=== PATIENT | male | born 1985 | race Caucasian/White ===

== ENCOUNTER 2018-01-02 00:38 | Emergency (ER) | payer MEDICARE ==
[~2018-01-02] VITALS: Ht 175.3 cm; Wt 77.1 kg
[~2018-01-02 00:38] MED LIST: ALBU3IS INH; ALBU4 PO; ALBU90OI INH; Cipro500 MG PO; Flomax0.4 MG PO; Percocet 5-3251 EACH PO
[2018-01-02 00:55] LABS: BASOPHILS ABSOLUTE AUTO 0.07 K/mm3 (0.00-0.23); BASOPHILS PERCENT AUTO 1 % (0-2); EOSINOPHILS ABSOLUTE AUTO 0.52 K/mm3 (0.00-0.68); EOSINOPHILS PERCENT AUTO 6 % (0-6); Hematocrit 45.3 % (37.0-53.0); Hemoglobin 15.2 g/dL (13.5-17.5); IMMATURE GRAN ABSOLUTE AUTO 0.03 K/mm3 (0.00-0.10); IMMATURE GRAN PERCENT AUTO 0 % (0-1); LYMPHOCYTES ABSOLUTE AUTO 3.39 K/mm3 (0.84-5.20); LYMPHOCYTES PERCENT AUTO 37 % (21-46); MONOCYTES ABSOLUTE AUTO 0.78 K/mm3 (0.16-1.47); MONOCYTES PERCENT AUTO 9 % (4-13); Mean Corpuscular HGB 30.3 pg (26.0-34.0); Mean Corpuscular HGB Conc 33.6 g/dL (31.5-36.5); Mean Corpuscular Volume 90 fL (80-100); Mean Platelet Volume 9.3 fL (9.1-12.4); NEUTROPHILS ABSOLUTE AUTO 4.35 K/mm3 (1.96-9.15); NEUTROPHILS PERCENT AUTO 48 % (41-73); Platelet Count 382 K/mm3 (150-400); RDW Coefficient Variation 12.6 % (11.7-14.2); RDW Standard Deviation 41.7 fL (35.1-46.3); Red Blood Cell Count 5.02 M/mm3 (4.30-5.90); White Blood Cell Count 9.14 K/mm3 (4.00-11.30)
[2018-01-02 00:55] LABS: PO2 Arterial 62.9 mmHg (80-100); pH Blood Arterial 7.37 (7.35-7.45)
[2018-01-02 01:08] LABS: International Normalized Ratio 1.02; Prothrombin Time Results 10.6 Sec (9.7-11.5)
[2018-01-02 01:19] LABS: Alanine Aminotransfer (ALT/SGP 43 U/L (12-78); Albumin/Globulin Ratio 1.1 (0.8-1.8); Alk Phos 63 U/L (50-136); Anion Gap 9 mmol/L (6-16); Aspartate Aminotrans (AST/SGOT 27 U/L (12-37); Bilirubin, Total 0.3 mg/dL (0.1-1.0); Blood Urea Nitrogen 12 mg/dL (8-24); Bun/Creatinine Ratio 10.3 (12.0-20.0); CO2, Blood 26 mmol/L (21-32); Calcium, Blood 8.3 mg/dL (8.5-10.1); Chloride, Blood 103 mmol/L (98-108); Creatinine, Blood 1.16 mg/dL (0.60-1.20); Globulin, Blood 3.7 g/dL (2.2-4.0); Glomerular Filtration Rate >60 (60-); Glucose, Blood 94 mg/dL (70-99); Potassium, Blood 3.7 mmol/L (3.5-5.5); Sodium, Blood 138 mmol/L (136-145); Total Protein, Blood 7.7 g/dL (6.4-8.2)
[2018-01-02 01:20] LABS: Ethanol (Alcohol), Blood, Med 287 mg/dL
[2018-02-17] MEDS ORDERED: GABA300 PO (03:42)
[2018-03-25] MEDS ORDERED: ALBU90OI INH (16:38)
== END 2018-01-02 01:50 | disposition short-term general hospital (02) ==
LOC: ER 00:38
PROVIDERS: Emergency Medicine
DX: S32.442A Displaced fracture of posterior column [ilioischial] of left acetabulum, initial encounter for closed fracture (principal); S32.432A Displaced fracture of anterior column [iliopubic] of left acetabulum, initial encounter for closed fracture; S73.015A Posterior dislocation of left hip, initial encounter; J45.909 Unspecified asthma, uncomplicated; F17.200 Nicotine dependence, unspecified, uncomplicated; V47.5XXA Car driver injured in collision with fixed or stationary object in traffic accident, initial encounter
CPT/HCPCS: 36430; 36600; 51702; 70450; 71045; 71260; 72125; 72170; 74177; 80053; 82803; 83690; 85025; 85610; 85730; 86850; 86900; 86901; 86920; 90714; 96365; 96375; 99291; C1771; G0390; G0480; J1170; J2405; J3010; J7030; J7040; P9016; Q9967

== ENCOUNTER 2018-02-17 03:03 | Emergency (ER) | payer MEDICARE ==
[~2018-02-17] VITALS: Ht 188 cm; Wt 95.2 kg
[2018-02-17] MEDS ORDERED: ALBU3IS INH (03:41)
[2018-02-17] MEDS ORDERED: OXYC5 (03:42)
[2018-02-17] MEDS ORDERED: GABA300 (03:42)
[2018-02-17] MEDS ORDERED: CLARITIN10 MG PO (04:21)
[2018-02-17] MEDS ORDERED: OXYM.05NI (04:21)
[2018-02-17] MEDS ORDERED: Prednisone20 MG PO (04:21)
== END 2018-02-17 04:46 | disposition home or self-care (01) ==
LOC: ER 03:03
DX: J45.901 Unspecified asthma with (acute) exacerbation (principal); J44.9 Chronic obstructive pulmonary disease, unspecified; Z88.6 Allergy status to analgesic agent; Z79.899 Other long term (current) drug therapy; Z79.51 Long term (current) use of inhaled steroids; Z87.891 Personal history of nicotine dependence
CPT/HCPCS: 94640; 96365; 99283; J3475

== ENCOUNTER 2018-02-25 09:26 | Inpatient (IN) | payer MEDICARE ==
[~2018-02-25] VITALS: Ht 172.7 cm; Wt 94.0 kg
[~2018-02-25 09:26] MED LIST changes: +CLARITIN10 MG PO; +GABA300 PO; +OXYC5; +OXYM.05NI; +Prednisone20 MG PO
[2018-02-25 11:46] LABS: BASOPHILS ABSOLUTE AUTO 0.11 K/mm3 (0.00-0.23); BASOPHILS PERCENT AUTO 1 % (0-2); EOSINOPHILS ABSOLUTE AUTO 0.98 K/mm3 (0.00-0.68); EOSINOPHILS PERCENT AUTO 11 % (0-6); Hematocrit 44.7 % (37.0-53.0); Hemoglobin 14.7 g/dL (13.5-17.5); IMMATURE GRAN ABSOLUTE AUTO 0.04 K/mm3 (0.00-0.10); IMMATURE GRAN PERCENT AUTO 0 % (0-1); LYMPHOCYTES ABSOLUTE AUTO 1.62 K/mm3 (0.84-5.20); LYMPHOCYTES PERCENT AUTO 18 % (21-46); MONOCYTES ABSOLUTE AUTO 0.55 K/mm3 (0.16-1.47); MONOCYTES PERCENT AUTO 6 % (4-13); Mean Corpuscular HGB 29.5 pg (26.0-34.0); Mean Corpuscular HGB Conc 32.9 g/dL (31.5-36.5); Mean Corpuscular Volume 90 fL (80-100); Mean Platelet Volume 9.7 fL (9.1-12.4); NEUTROPHILS ABSOLUTE AUTO 5.59 K/mm3 (1.96-9.15); NEUTROPHILS PERCENT AUTO 63 % (41-73); Platelet Count 343 K/mm3 (150-400); RDW Coefficient Variation 13.3 % (11.7-14.2); RDW Standard Deviation 43.8 fL (35.1-46.3); Red Blood Cell Count 4.98 M/mm3 (4.30-5.90); White Blood Cell Count 8.89 K/mm3 (4.00-11.30)
[2018-02-25 12:06] LABS: Alanine Aminotransfer (ALT/SGP 31 U/L (12-78); Albumin, Blood 3.6 g/dL (3.4-5.0); Albumin/Globulin Ratio 1.1 (0.8-1.8); Alk Phos 62 U/L (50-136); Anion Gap 5 mmol/L (6-16); Aspartate Aminotrans (AST/SGOT 16 U/L (12-37); Bilirubin, Total 0.3 mg/dL (0.1-1.0); Blood Urea Nitrogen 17 mg/dL (8-24); Bun/Creatinine Ratio 18.2 (12.0-20.0); CO2, Blood 25 mmol/L (21-32); Calcium, Blood 8.5 mg/dL (8.5-10.1); Chloride, Blood 113 mmol/L (98-108); Creatinine, Blood 0.93 mg/dL (0.60-1.20); Globulin, Blood 3.2 g/dL (2.2-4.0); Glomerular Filtration Rate >60 (60-); Glucose, Blood 95 mg/dL (70-99); Potassium, Blood 3.6 mmol/L (3.5-5.5); Sodium, Blood 143 mmol/L (136-145); Total Protein, Blood 6.8 g/dL (6.4-8.2)
[2018-02-25 12:25] LABS: PCO2 Arterial 33.8 mmHg (35-45); pH Blood Arterial 7.45 (7.35-7.45)
[2018-02-25 12:26] LABS: PO2 Arterial 49.2 mmHg (80-100)
[2018-02-26 04:32] LABS: BASOPHILS ABSOLUTE AUTO 0.02 K/mm3 (0.00-0.23); BASOPHILS PERCENT AUTO 0 % (0-2); EOSINOPHILS PERCENT AUTO 0 % (0-6); Hematocrit 43.4 % (37.0-53.0); Hemoglobin 14.4 g/dL (13.5-17.5); IMMATURE GRAN ABSOLUTE AUTO 0.09 K/mm3 (0.00-0.10); IMMATURE GRAN PERCENT AUTO 1 % (0-1); LYMPHOCYTES ABSOLUTE AUTO 0.69 K/mm3 (0.84-5.20); LYMPHOCYTES PERCENT AUTO 4 % (21-46); MONOCYTES ABSOLUTE AUTO 0.41 K/mm3 (0.16-1.47); MONOCYTES PERCENT AUTO 3 % (4-13); Mean Corpuscular HGB 29.3 pg (26.0-34.0); Mean Corpuscular HGB Conc 33.2 g/dL (31.5-36.5); Mean Corpuscular Volume 88 fL (80-100); Mean Platelet Volume 9.6 fL (9.1-12.4); NEUTROPHILS ABSOLUTE AUTO 15.42 K/mm3 (1.96-9.15); NEUTROPHILS PERCENT AUTO 93 % (41-73); Platelet Count 379 K/mm3 (150-400); Red Blood Cell Count 4.92 M/mm3 (4.30-5.90); White Blood Cell Count 16.63 K/mm3 (4.00-11.30)
[2018-02-26 04:54] LABS: Alanine Aminotransfer (ALT/SGP 31 U/L (12-78); Albumin, Blood 3.6 g/dL (3.4-5.0); Alk Phos 65 U/L (50-136); Anion Gap 6 mmol/L (6-16); Aspartate Aminotrans (AST/SGOT 9 U/L (12-37); Bilirubin, Total 0.4 mg/dL (0.1-1.0); Blood Urea Nitrogen 17 mg/dL (8-24); CO2, Blood 24 mmol/L (21-32); Chloride, Blood 109 mmol/L (98-108); Creatinine, Blood 0.89 mg/dL (0.60-1.20); Globulin, Blood 3.5 g/dL (2.2-4.0); Glomerular Filtration Rate >60 (60-); Glucose, Blood 147 mg/dL (70-99); Potassium, Blood 4.4 mmol/L (3.5-5.5); Sodium, Blood 139 mmol/L (136-145); Total Protein, Blood 7.1 g/dL (6.4-8.2)
[2018-02-26] MEDS ORDERED: BREO ELLIPTA 11 EACH INH (12:28)
[2018-02-26] MEDS ORDERED: DOCU100 PO (12:29)
[2018-02-27] MEDS ORDERED: OXYM.05NI (10:27)
[2018-02-27] MEDS ORDERED: CEPH500 PO (10:28)
[2018-02-27] MEDS ORDERED: Omeprazole20 M1 PO (10:28)
[2018-02-27] MEDS ORDERED: MONT10T PO (10:28)
[2018-02-27] MEDS ORDERED: PRED10 PO (10:30)
== END 2018-02-27 12:25 | disposition home or self-care (01) | DRG 189 ==
LOC: ER 09:26 → ICUE 12:15 → PCU 12:15 → ICUE 12:45 → MEDS 02-26 20:39 → ENPENDDIS 02-27 10:43 → MEDS 02-27 12:25
PROVIDERS: Emergency Medicine; Internal Medicine
DX: J96.01 Acute respiratory failure with hypoxia (principal); J45.901 Unspecified asthma with (acute) exacerbation; J44.0 Chronic obstructive pulmonary disease with (acute) lower respiratory infection; G62.9 Polyneuropathy, unspecified; J20.9 Acute bronchitis, unspecified; K21.9 Gastro-esophageal reflux disease without esophagitis
CPT/HCPCS: 36415; 36600; 71046; 80053; 82803; 85025; 94640; 94644; 94760; 94761; 94762; 96365; 96366; 96375; 99285; J0696; J1650; J2930; J3475; J7030

== ENCOUNTER 2018-03-25 | Emergency (ER) | END 2018-03-25 16:44 | disposition home or self-care (01) ==

== ENCOUNTER 2018-12-05 11:26 | Emergency (ER) | payer MEDICARE ==
[~2018-12-05] VITALS: Ht 188 cm; Wt 86.2 kg
[~2018-12-05 11:26] MED LIST changes: +BREO ELLIPTA 11 EACH INH; +CEPH500 PO; +DOCU100 PO; +MONT10T PO; +Omeprazole20 M1 PO; +PRED10 PO
[2018-12-05] MEDS ORDERED: Prednisone20 MG PO (12:46)
[2018-12-05] MEDS ORDERED: ALBU3IS INH ×2 (12:46→13:21)
[2018-12-06] MEDS ORDERED: ALBU3IS INH (14:54)
== END 2018-12-05 12:51 | disposition home or self-care (01) ==
LOC: ER 11:26
DX: J40 Bronchitis, not specified as acute or chronic (principal); F17.200 Nicotine dependence, unspecified, uncomplicated; Z88.6 Allergy status to analgesic agent; Z79.899 Other long term (current) drug therapy; Z79.51 Long term (current) use of inhaled steroids
CPT/HCPCS: 71046; 94640; 99283-25

== ENCOUNTER 2019-01-10 11:06 | Emergency (ER) | payer MEDICARE ==
[~2019-01-10] VITALS: Ht 188 cm; Wt 86.2 kg
[2019-01-10 11:46] LABS: BASOPHILS ABSOLUTE AUTO 0.13 K/mm3 (0.00-0.23); BASOPHILS PERCENT AUTO 1 % (0-2); EOSINOPHILS ABSOLUTE AUTO 0.56 K/mm3 (0.00-0.68); EOSINOPHILS PERCENT AUTO 4 % (0-6); Hematocrit 45.4 % (37.0-53.0); Hemoglobin 15.4 g/dL (13.5-17.5); IMMATURE GRAN ABSOLUTE AUTO 0.13 K/mm3 (0.00-0.10); IMMATURE GRAN PERCENT AUTO 1 % (0-1); LYMPHOCYTES ABSOLUTE AUTO 1.06 K/mm3 (0.84-5.20); LYMPHOCYTES PERCENT AUTO 8 % (21-46); MONOCYTES ABSOLUTE AUTO 1.97 K/mm3 (0.16-1.47); MONOCYTES PERCENT AUTO 15 % (4-13); Mean Corpuscular HGB 31.5 pg (26.0-34.0); Mean Corpuscular HGB Conc 33.9 g/dL (31.5-36.5); Mean Corpuscular Volume 93 fL (80-100); Mean Platelet Volume 9.8 fL (9.1-12.4); NEUTROPHILS ABSOLUTE AUTO 9.41 K/mm3 (1.96-9.15); NEUTROPHILS PERCENT AUTO 71 % (41-73); Platelet Count 357 K/mm3 (150-400); RDW Coefficient Variation 13.3 % (11.7-14.2); RDW Standard Deviation 45.5 fL (35.1-46.3); Red Blood Cell Count 4.89 M/mm3 (4.30-5.90); White Blood Cell Count 13.26 K/mm3 (4.00-11.30)
[2019-01-10 12:04] LABS: Alanine Aminotransfer (ALT/SGP 147 U/L (12-78); Albumin, Blood 3.3 g/dL (3.4-5.0); Albumin/Globulin Ratio 0.7 (0.8-1.8); Alk Phos 68 U/L (50-136); Anion Gap 8 mmol/L (6-16); Aspartate Aminotrans (AST/SGOT 39 U/L (12-37); Bilirubin, Total 0.9 mg/dL (0.1-1.0); Blood Urea Nitrogen 10 mg/dL (8-24); Bun/Creatinine Ratio 10.9 (12.0-20.0); CO2, Blood 25 mmol/L (21-32); Calcium, Blood 8.9 mg/dL (8.5-10.1); Chloride, Blood 105 mmol/L (98-108); Creatinine, Blood 0.92 mg/dL (0.60-1.20); Globulin, Blood 4.5 g/dL (2.2-4.0); Glomerular Filtration Rate >60 (60-); Glucose, Blood 101 mg/dL (70-99); Potassium, Blood 3.9 mmol/L (3.5-5.5); Sodium, Blood 138 mmol/L (136-145); Total Protein, Blood 7.8 g/dL (6.4-8.2)
[2019-01-10] MEDS ORDERED: FLUT1DIS2 INH (12:38)
[2019-01-10] MEDS ORDERED: CEPH500 PO (13:26)
[2019-01-10] MEDS ORDERED: Zithromax250 MG PO (13:26)
[2019-01-10] MEDS ORDERED: ALBU2.5V5 NEB (13:26)
[2019-01-10] MEDS ORDERED: METPRE4DP PO (13:26)
== END 2019-01-10 16:01 | disposition home or self-care (01) ==
LOC: ER 11:06
PROVIDERS: Physician Assistant
DX: J44.0 Chronic obstructive pulmonary disease with (acute) lower respiratory infection (principal); J18.9 Pneumonia, unspecified organism; J98.01 Acute bronchospasm; E86.0 Dehydration; Z88.6 Allergy status to analgesic agent; Z79.899 Other long term (current) drug therapy; F17.200 Nicotine dependence, unspecified, uncomplicated
CPT/HCPCS: 36415; 71046; 80053; 85025; 94640; 96365; 96367; 96375; 99285-25; J0456; J0696; J2930; J7030; J7050

== ENCOUNTER 2019-07-03 08:39 | Emergency (ER) | payer MEDICARE ==
[~2019-07-03] VITALS: Ht 188 cm; Wt 90.7 kg
[~2019-07-03 08:39] MED LIST changes: +ALBU2.5V5 NEB; +FLUT1DIS2 INH; +METPRE4DP PO; +Zithromax250 MG PO
== END 2019-07-03 10:51 | disposition home or self-care (01) ==
LOC: ER 08:39
DX: J45.901 Unspecified asthma with (acute) exacerbation (principal); Z87.891 Personal history of nicotine dependence; Z88.8 Allergy status to other drugs, medicaments and biological substances; Z79.899 Other long term (current) drug therapy; Z79.51 Long term (current) use of inhaled steroids
CPT/HCPCS: 94640; 94644; 99284-25; J1100

== ENCOUNTER 2019-07-16 19:12 | Emergency (ER) | payer MEDICARE ==
[~2019-07-16] VITALS: Ht 188 cm; Wt 93.0 kg
[2019-07-16] MEDS ORDERED: ALBU90OI INH (20:07)
[2019-07-16] MEDS ORDERED: ALBU2.5V5 INH (20:07)
== END 2019-07-16 20:32 | disposition home or self-care (01) ==
LOC: ER 19:12
DX: J45.901 Unspecified asthma with (acute) exacerbation (principal); J44.9 Chronic obstructive pulmonary disease, unspecified; Z88.6 Allergy status to analgesic agent; Z87.891 Personal history of nicotine dependence; Z79.51 Long term (current) use of inhaled steroids
CPT/HCPCS: 94640; 99283-25; J1100

== ENCOUNTER 2019-07-27 07:06 | Emergency (ER) | payer MEDICARE ==
[~2019-07-27] VITALS: Ht 188 cm; Wt 99.8 kg
[~2019-07-27 07:06] MED LIST changes: +ALBU2.5V5 INH
[2019-07-27] MEDS ORDERED: ALBU90OI INH (10:12)
[2019-07-27] MEDS ORDERED: Prednisone20 MG PO (10:12)
== END 2019-07-27 10:37 | disposition home or self-care (01) ==
LOC: ER 07:06
DX: J45.901 Unspecified asthma with (acute) exacerbation (principal); Z87.891 Personal history of nicotine dependence; Z88.6 Allergy status to analgesic agent; Z79.899 Other long term (current) drug therapy
CPT/HCPCS: 71045; 94640; 96365; 96375; 99285-25; J1100; J3475; J7030

== ENCOUNTER 2019-07-28 07:14 | Emergency (ER) | payer MEDICARE ==
[~2019-07-28] VITALS: Ht 188 cm; Wt 93.0 kg
== END 2019-07-28 10:05 | disposition home or self-care (01) ==
LOC: ER 07:14
DX: J45.901 Unspecified asthma with (acute) exacerbation (principal); Z88.6 Allergy status to analgesic agent; Z79.899 Other long term (current) drug therapy; Z79.52 Long term (current) use of systemic steroids; J44.9 Chronic obstructive pulmonary disease, unspecified; Z87.891 Personal history of nicotine dependence
CPT/HCPCS: 94644; 99284-25

== ENCOUNTER 2019-09-12 05:11 | Emergency (ER) | payer OTHER ==
[~2019-09-12] VITALS: Ht 188 cm; Wt 93.0 kg
[2019-09-12] MEDS ORDERED: FLUT1DIS2 INH (05:31)
[2019-09-12] MEDS ORDERED: Prednisone20 MG PO (05:42)
== END 2019-09-12 05:54 | disposition home or self-care (01) ==
LOC: ER 05:11
DX: J45.901 Unspecified asthma with (acute) exacerbation (principal); Z87.891 Personal history of nicotine dependence; Z88.6 Allergy status to analgesic agent; Z79.899 Other long term (current) drug therapy
CPT/HCPCS: 94640; 99284-25; J7512

== ENCOUNTER 2019-10-31 19:02 | Inpatient (IN) | payer OTHER ==
[~2019-10-31] VITALS: Ht 188 cm; Wt 97.4 kg
[2019-10-31 19:53] LABS: BASOPHILS ABSOLUTE AUTO 0.09 K/mm3 (0.00-0.23); BASOPHILS PERCENT AUTO 1 % (0-2); EOSINOPHILS PERCENT AUTO 5 % (0-6); Hematocrit 48.5 % (37.0-53.0); Hemoglobin 16.6 g/dL (13.5-17.5); IMMATURE GRAN ABSOLUTE AUTO 0.03 K/mm3 (0.00-0.10); IMMATURE GRAN PERCENT AUTO 0 % (0-1); LYMPHOCYTES PERCENT AUTO 4 % (21-46); MONOCYTES ABSOLUTE AUTO 0.94 K/mm3 (0.16-1.47); MONOCYTES PERCENT AUTO 10 % (4-13); Mean Corpuscular HGB 30.1 pg (26.0-34.0); Mean Corpuscular HGB Conc 34.2 g/dL (31.5-36.5); Mean Corpuscular Volume 88 fL (80-100); Mean Platelet Volume 9.9 fL (9.1-12.4); NEUTROPHILS ABSOLUTE AUTO 7.77 K/mm3 (1.96-9.15); NEUTROPHILS PERCENT AUTO 80 % (41-73); Platelet Count 325 K/mm3 (150-400); RDW Coefficient Variation 12.2 % (11.7-14.2); Red Blood Cell Count 5.52 M/mm3 (4.30-5.90); White Blood Cell Count 9.73 K/mm3 (4.00-11.30)
[2019-10-31 19:56] LABS: PO2 Arterial 47 mmHg (80-100); pH Blood Arterial 7.46 (7.35-7.45)
[2019-10-31 20:08] LABS: International Normalized Ratio 1.04
[2019-10-31 20:12] LABS: Alanine Aminotransfer (ALT/SGP 35 U/L (12-78); Albumin, Blood 4.1 g/dL (3.4-5.0); Albumin/Globulin Ratio 1.1 (0.8-1.8); Alk Phos 57 U/L (50-136); Anion Gap 6 mmol/L (6-16); Aspartate Aminotrans (AST/SGOT 35 U/L (12-37); Bilirubin, Total 0.5 mg/dL (0.1-1.0); Blood Urea Nitrogen 15 mg/dL (8-24); Bun/Creatinine Ratio 11.7 (12.0-20.0); CO2, Blood 24 mmol/L (21-32); Calcium, Blood 8.9 mg/dL (8.5-10.1); Chloride, Blood 106 mmol/L (98-108); Creatinine, Blood 1.28 mg/dL (0.60-1.20); Globulin, Blood 3.7 g/dL (2.2-4.0); Glomerular Filtration Rate >60 (60-); Glucose, Blood 105 mg/dL (70-99); Potassium, Blood 4.4 mmol/L (3.5-5.5); Sodium, Blood 136 mmol/L (136-145); Total Protein, Blood 7.8 g/dL (6.4-8.2)
[2019-10-31 20:13] LABS: Influenza A Negative (NEGATIVE); Influenza B Negative (NEGATIVE)
[2019-10-31] MEDS ORDERED: FLUTICASONE-SA1 EAC5 INH (20:28)
[2019-10-31] MEDS ORDERED: ALBU3IS INH (20:29)
[2019-10-31 21:19] LABS: D-Dimer, Quantitative 0.61 mg/L FEU (0.00-0.52)
[2019-10-31 23:00] LABS: Source, Urine Catheter
[2019-10-31 23:03] LABS: Bilirubin, Urine Neg (Neg); Blood, Urine Neg (Neg); Glucose Qualitative, Urine Neg (Neg); Ketones, Urine 1+ (Neg); Leukocyte Esterase, Urine Neg (Neg); Nitrite, Urine Neg (Neg); Protein, Urine Neg (Neg); Specific Gravity, Urine 1.015 (1.003-1.022); Urobilinogen, Urine NORM (Normal)
[2019-10-31 23:08] LABS: Appearance, Urine Clear (Clear); Color, Urine Yellow (P-Yellow)
[2019-11-01 01:12] LABS: PCO2 Arterial 46.4 mmHg (35-45); PO2 Arterial 83.8 mmHg (80-100)
[2019-11-01 01:14] LABS: Adenovirus Not Detected (NOT DETECT); Bordetella pertussis Not Detected (NOT DETECT); Chlamydophila pneumoniae Not Detected (NOT DETECT); Coronavirus 229E Not Detected (NOT DETECT); Coronavirus HKU1 Not Detected (NOT DETECT); Coronavirus NL63 Not Detected (NOT DETECT); Coronavirus OC43 Not Detected (NOT DETECT); Human Metapneumovirus Not Detected (NOT DETECT); Human Rhinovirus/Enterovirus Not Detected (NOT DETECT); Influenza A Not Detected (NOT DETECT); Influenza A/2009-H1 Detected (NOT DETECT); Influenza A/H1 Not Detected (NOT DETECT); Influenza A/H3 Not Detected (NOT DETECT); Influenza B Not Detected (NOT DETECT); Mycoplasma pneumoniae Not Detected (NOT DETECT); Parainfluenza Virus 1 Not Detected (NOT DETECT); Parainfluenza Virus 2 Not Detected (NOT DETECT); Parainfluenza Virus 3 Not Detected (NOT DETECT); Parainfluenza Virus 4 Not Detected (NOT DETECT); Respiratory Syncytial Virus Not Detected (NOT DETECT)
[2019-11-01 01:57] LABS: PCO2 Arterial 46.4 mmHg (35-45); PO2 Arterial 83.8 mmHg (80-100)
--- NOTE | 2019-11-01 02:01 | NUR ---
Admission/[facility]: Patient arrived to unit at 2320hr via stretcher, accompanied by ED nurse. Patient responding to verbal stimuli but not following any commands. Patient overall very restless/agitated, fighting/coughing ventilator, pulling on restraints, and attempting to sit upright in bed. Propofol gtt at 80mcg/kg/min upon arrival. Call placed to Dr. Monge, received orders for prn Versed, fentanyl, and for wheel installer/pulmonary consult. Prn Versed x3 2mg doses, and prn fentanyl x1 dose given since arrival, per continued restlessness, and lack of vent compliance. Patient appears mostly calm at this time, occasionally coughing. Ventilator set to AC-16/500/10/100%, O2-93-98%. HR showed sinus tachycardia 130's-140's upon arrival but has now decreased to 120's, BP remains stable. Temp-probe may in place, draining clear yellow urine. Temp-probe showed 101.7, and has decreased to 101.1 at this time, iced cloth to forehead. Peripheral IV's x2 patent and intact. Dr. Hartley notified verbally in unit of patient and the order for consult at approx 0130hr. Respiratory panel obtained after arrival, which resulted positive for H1N1, Dr. Hartley notified. Will continue to monitor.
[2019-11-01 03:53] LABS: BASOPHILS ABSOLUTE AUTO 0.05 K/mm3 (0.00-0.23); BASOPHILS PERCENT AUTO 1 % (0-2); EOSINOPHILS PERCENT AUTO 0 % (0-6); Hematocrit 48.9 % (37.0-53.0); Hemoglobin 16.2 g/dL (13.5-17.5); IMMATURE GRAN ABSOLUTE AUTO 0.03 K/mm3 (0.00-0.10); IMMATURE GRAN PERCENT AUTO 0 % (0-1); LYMPHOCYTES ABSOLUTE AUTO 0.52 K/mm3 (0.84-5.20); LYMPHOCYTES PERCENT AUTO 6 % (21-46); MONOCYTES ABSOLUTE AUTO 0.32 K/mm3 (0.16-1.47); MONOCYTES PERCENT AUTO 4 % (4-13); Mean Corpuscular HGB 29.8 pg (26.0-34.0); Mean Corpuscular HGB Conc 33.1 g/dL (31.5-36.5); Mean Corpuscular Volume 90 fL (80-100); Mean Platelet Volume 9.6 fL (9.1-12.4); NEUTROPHILS ABSOLUTE AUTO 8.06 K/mm3 (1.96-9.15); NEUTROPHILS PERCENT AUTO 90 % (41-73); Platelet Count 299 K/mm3 (150-400); RDW Coefficient Variation 12.5 % (11.7-14.2); RDW Standard Deviation 41.3 fL (35.1-46.3); Red Blood Cell Count 5.43 M/mm3 (4.30-5.90); White Blood Cell Count 8.98 K/mm3 (4.00-11.30)
[2019-11-01 04:17] LABS: Anion Gap 9 mmol/L (6-16); Blood Urea Nitrogen 19 mg/dL (8-24); Bun/Creatinine Ratio 13.5 (12.0-20.0); CO2, Blood 21 mmol/L (21-32); Calcium, Blood 8.5 mg/dL (8.5-10.1); Chloride, Blood 106 mmol/L (98-108); Creatinine, Blood 1.41 mg/dL (0.60-1.20); Glomerular Filtration Rate >60 (60-); Glucose, Blood 178 mg/dL (70-99); Magnesium, Blood 2.3 mg/dL (1.6-2.4); Phosphorus, Blood 3.1 mg/dL (2.5-4.9); Potassium, Blood 4.4 mmol/L (3.5-5.5); Sodium, Blood 136 mmol/L (136-145)
[2019-11-01 04:46] LABS: PO2 Arterial 86.2 mmHg (80-100); pH Blood Arterial 7.35 (7.35-7.45)
--- NOTE | 2019-11-01 06:13 | NUR ---
Shift Summary: Patient overall tolerating vent and appearing more comfortable throughout shift, but continued to have intermittent periods of difficulty. Following cares, patient's respiratory rate would increase to high 30's, HR increased to 130's, increased use of skeletal muscle breathing, and excessive coughing. Prn fentanyl and Ativan, along with no stimulation, effective to calm patient. Respiratory rate now in med 20's, HR-120's, and appears more calm/comfortable, tolerating vent. Dr. Hartley to room approx 0230hr, and increased PEEP to 12, vent now to AC 16/500/12/90%, BP remains stable. Started on LR at 125ml/hr, peripheral IV's x2 remain patent and intact. Saini cath remains patent and intact, but urine is now cloudy with excess sediment, approx 450ml out throughout remainder of shift. Will continue to monitor until report to day shift RN.
--- NOTE | 2019-11-01 09:26 | NUR ---
PT SEDATED ON 80MCG PROPOFOL FOR MECH VENT. PT HAS MINIMAL RESPONSE TO NOXIOUS STIMULI; GRIMACES, MOVES HEAD-BUT RESP RATE 40+ WITH SIGNIFICANT SUBSTERNAL RETRACTIONS WITH SATS 90% ON 90% FIO2 AND PEEP 12. FENT 50MCG GIVEN TO INCREASE SEDATION/ ALLOW FOR SYNCHRONY WITH VENT. THE ADDITIONAL SEDATION WORKED WELL WITH RESP 20+ AND SATS INCREASING TO 96%. PT FEBRILE W TEMP 101.3. ICE PACKS PLACED TO NECK, UNDERARMS, GROIN, COOL WASHCLOTH TO FOREHEAD AND CHEST WITH FAN RUNNING. TEMP HAS DECREASED TO 100.3. FAINT SCATTERED WHEEZING WITH COARSE LUNGS SOUNDS TO RUL. NO SECRETIONS WHEN SUCTIONED. BP TRENDING DOWN. PT MAY REQUIRE A PICC LINE.
--- NOTE | 2019-11-01 16:32 | NUR ---
PT'S AND BROTHER AT BEDSIDE; UPDATE GIVEN. LEVOPHED STARTED AT 1300 AFTER PICC PLACED TO [facility] FOR HYPOTENSION. LEVOPHED DECREASED FROM 4MCG TO 2MCG NOW. PT DIAPHORECTIC, COOL, AND PALE. TEMP 100.2. FENT GTT INFUSING 25MCG/HR, WITH GOOD EFFECT. RESP DECREASED NOW TO 18-24 WITH ADDED SEDATION AND P/C MODE CHANGE; SUBSTERNAL RETRACTIONS MUCH IMPROVED WELL.
--- NOTE | 2019-11-01 17:36 | NUR ---
ATIVAN 2MG IVP GIVEN; PROPOFOL DECREASED TO 70MCG.
--- NOTE | 2019-11-01 21:17 | NUR ---
[facility] of Care: Care assumed at 1900hr. Patient remains intubated and sedated. requiring high levels of sedation r/t ventilator tolerance. Patient currently on propofol gtt at 65mcg/kg/min, decreased to 60mcg/kg/min shortly after shift change, fentanyl gtt at 25mcg/hr, and prn ativan. Patient appears calm/comfortable at this time, responds to noxious stimuli, but not opening eyes or following commands. Vent to PC 16/12/75%, O2-93-96%, tolerating vent mode without difficulty at this time, respiratory rate-22-25. Levophed gtt at 2mcg/min, BP stable. PICC line to MAYA patent and intact, infusing without difficulty. Saini cath patent and intact, draining clear yellow urine. Will continue to monitor, will titrate propofol gtt down as indicated/tolerated. Plan to titrate levophed gtt off as indicated.
[2019-11-02 04:19] LABS: BASOPHILS ABSOLUTE AUTO 0.01 K/mm3 (0.00-0.23); BASOPHILS PERCENT AUTO 0 % (0-2); EOSINOPHILS PERCENT AUTO 0 % (0-6); Hematocrit 43.8 % (37.0-53.0); IMMATURE GRAN ABSOLUTE AUTO 0.04 K/mm3 (0.00-0.10); IMMATURE GRAN PERCENT AUTO 0 % (0-1); LYMPHOCYTES ABSOLUTE AUTO 0.38 K/mm3 (0.84-5.20); LYMPHOCYTES PERCENT AUTO 4 % (21-46); MONOCYTES PERCENT AUTO 9 % (4-13); Mean Corpuscular HGB 29.6 pg (26.0-34.0); NEUTROPHILS ABSOLUTE AUTO 9.23 K/mm3 (1.96-9.15); NEUTROPHILS PERCENT AUTO 87 % (41-73); Platelet Count 247 K/mm3 (150-400); RDW Coefficient Variation 12.6 % (11.7-14.2); RDW Standard Deviation 43.2 fL (35.1-46.3); Red Blood Cell Count 4.73 M/mm3 (4.30-5.90); White Blood Cell Count 10.56 K/mm3 (4.00-11.30)
[2019-11-02 04:20] LABS: Mean Corpuscular Volume 93 fL (80-100)
[2019-11-02 04:35] LABS: PCO2 Arterial 58.4 mmHg (35-45); PO2 Arterial 108 mmHg (80-100)
[2019-11-02 04:36] LABS: pH Blood Arterial 7.29 (7.35-7.45)
[2019-11-02 04:38] LABS: Anion Gap 4 mmol/L (6-16); Blood Urea Nitrogen 17 mg/dL (8-24); CO2, Blood 27 mmol/L (21-32); Calcium, Blood 7.9 mg/dL (8.5-10.1); Chloride, Blood 107 mmol/L (98-108); Creatinine, Blood 1.13 mg/dL (0.60-1.20); Glomerular Filtration Rate >60 (60-); Glucose, Blood 155 mg/dL (70-99); Potassium, Blood 5.4 mmol/L (3.5-5.5); Sodium, Blood 138 mmol/L (136-145)
--- NOTE | 2019-11-02 06:31 | NUR ---
Shift Summary: Patient remains intubated/sedated throughout shift. Propofol gtt decreased from 65mcg/kg/min to 50-55mcg/kg/min throughout shift. Patient required x2 doses of prn Ativan per increased respiratory rate and increase use of intercostal muscles, good effect noted. Morning ABG showed critical pH- 7.29, RT Ino increased inspiratory pressure from 12 to 15, which in turn increased patient's minute ventilation from 7-8 to 10-11. Call placed to Dr. Hartley r/t ABG results and changes made to vent settings, no new orders/instructions received. Levophed gtt titrated down from 2mcg/min then placed on stand-by late this shift, BP remains stable. PICC line remains patent and intact, infusing without difficulty. Saini cath remains patent and intact, draining clear yellow urine, approx 1,100ml output. Appears calm and comfortable at this time. Will continue to monitor until report to day shift RN.
--- NOTE | 2019-11-02 08:42 | NUR ---
PT HAS MADE IMPROVEMENTS FROM YESTERDAY. PT SEDATED ON PROPOFOL AT 55MCG, FENT CONT INFUSION AT 25MCG/HR, AND PRN ATIVAN FOR MECH VENT. AC16,PC15,FIO2;70%, PEEP 12. RESP RATE IMPROVED TODAY 16-24, PT NO LONGER HAS INTERCOSTAL RETRACTIONS. PT IS REQUIRING LESS SEDATION TODAY AND IS AFEBRILE AT 98.1. ALTHOUGH LUNGS HAVE SCATTERED WHEEZING T/O THEY ARE MUCH IMPROVED FROM YESTERDAY. URINE HAS CLEARED W SUFFICIANT U/O. DR GARCIA IN TO SEE THIS PT THIS AM. LEVOPHED REMAINS OFF.
[2019-11-02 10:52] LABS: Vancomycin, Trough 7.9 ug/mL (5.0-10.0)
--- NOTE | 2019-11-02 13:32 | NUR ---
DR GRACE IN TO SEE PT. SPUTUM CX ORDERED. PT'S AGVBOH-LC-NXT AT BEDSIDE. PT'S GIVEN UPDATE VIA PHONE SHE IS SICK AT HOME. PT'S VITALS REMAIN STABLE. NO CHANGE TO LUNG SOUNDS. FIO2 DECREASED TO 65% BY DR GRACE.
--- NOTE | 2019-11-02 19:30 | NUR ---
ASSUMED CARE OF PT, PT IS NOTED RESTING QUIETLY WITH HOB ELEVATED AT 30 DEGREES AT THIS TIME, HE IS REPSONSIVE TO ORAL CARE AT THIS TIME WITH GRIMACING, HE DOES NOT FOLLOW COMMANDS OR ANSWER YES/NO QUESTIONS, HE IS NOTED TO GRIMACE WITH INCREASED STIMULI WELL INCREASE RESPIRATORY RATE TO HIGH 20S. HE IS INTUBATED VENT IS SET TO PRESSURE SUPPORT, PI IS 15, PEEP 12, FIO2 55%, TIDAL VOLUMES ARE NOTED 450-600 AT THIS TIME, SATS ARE HIGH 90S, RATE HIGH TEENS TO LOW 20S WHEN UNDISTURBED, LUNGS ARE CLEAR IN BILAT UPPER LOBES, SCATTERED INS/EXP WHEEZES MID TO BASES WITH DIM BASES BILAT, NO INCREASED WORK OF BREATHING IS NOTED AT THIS TIME AND PT IS TOLERATING VENT WELL. HRR, SINUS RHYTHM ON MONITOR, CONTINUES TO MAINTAIN PRESSURE WITH LEVOPHED GTT ON STANDBY, PULSES ARE FULL BILAT RADIAL, FAINT BILAT PEDAL, BRISK CAP REFILL AT THIS TIME, NO EDEMA IS NOTED. HYPOACTIVE BOWEL TONES ARE NOTED, ABD SOFT, NO GRIMACING WITH PALP, OG TUBE IN PLACE, CLAMPED, RESIDUAL LESS THAN 30 ML IS NOTED AT THIS TIME. TEMP PROBE CLEMENTE REMAINS IN PLACE DRAINING CLEAR YELLOW URINE TO GRAVITY, 140 ML PRESENT IN UROMETER AT THIS TIME. PICC LINE IN PLACE TO RIGHT UPPER ARM, INFUSING NS AT TKO WITH ZOSYN, NS AT 75 ML/HR, FENTANYL GTT AT 25 MCG/HR, PROPOFOL AT 55 MCG/KG/MIN. PICC DRESSING IS CDI, SITE WNL. PERIPHERAL SL NOTED TO LEFT AC 20G, FLUSHES WELL, DRESSING INTACT, SITE WNL.
--- NOTE | 2019-11-02 19:30 | NUR ---
LR CHANGED TO NS AT 75CC PER DR GRACE. PROPOFOL REMAINS AT 55MCG. FENT AT 25MCG/HR. ATIVAN GIVEN X ONE TODAY. PT REMAINS WELL SEDATED. FIO2 WAS DECREASED TO 65% LUNGS REMAIN TIGHT T/O WITH SCATTERED WHEEZING; WORSE ON LEFT SIDE, BUT BETTER THAN YESTERDAY. VSS T/O SHIFT. PT'S MOTHER GIVEN UPDATE. REPORT GIVEN TO LEONARD MONTES. SPUTUM SAMPLE SENT.
[2019-11-03 04:25] LABS: BASOPHILS PERCENT AUTO 0 % (0-2); EOSINOPHILS PERCENT AUTO 0 % (0-6); Hematocrit 40.2 % (37.0-53.0); Hemoglobin 12.8 g/dL (13.5-17.5); IMMATURE GRAN ABSOLUTE AUTO 0.03 K/mm3 (0.00-0.10); IMMATURE GRAN PERCENT AUTO 0 % (0-1); LYMPHOCYTES ABSOLUTE AUTO 0.34 K/mm3 (0.84-5.20); LYMPHOCYTES PERCENT AUTO 3 % (21-46); MONOCYTES ABSOLUTE AUTO 0.59 K/mm3 (0.16-1.47); MONOCYTES PERCENT AUTO 5 % (4-13); Mean Corpuscular HGB Conc 31.8 g/dL (31.5-36.5); Mean Corpuscular Volume 94 fL (80-100); NEUTROPHILS ABSOLUTE AUTO 10.79 K/mm3 (1.96-9.15); NEUTROPHILS PERCENT AUTO 92 % (41-73); Platelet Count 246 K/mm3 (150-400); RDW Coefficient Variation 13.1 % (11.7-14.2); RDW Standard Deviation 45.6 fL (35.1-46.3); Red Blood Cell Count 4.26 M/mm3 (4.30-5.90); White Blood Cell Count 11.75 K/mm3 (4.00-11.30)
[2019-11-03 04:42] LABS: Anion Gap 2 mmol/L (6-16); Blood Urea Nitrogen 18 mg/dL (8-24); Bun/Creatinine Ratio 20.7 (12.0-20.0); CO2, Blood 31 mmol/L (21-32); Calcium, Blood 7.7 mg/dL (8.5-10.1); Chloride, Blood 107 mmol/L (98-108); Creatinine, Blood 0.87 mg/dL (0.60-1.20); Glomerular Filtration Rate >60 (60-); Glucose, Blood 143 mg/dL (70-99); Magnesium, Blood 2.2 mg/dL (1.6-2.4); Potassium, Blood 5.1 mmol/L (3.5-5.5); Sodium, Blood 140 mmol/L (136-145)
[2019-11-03 04:57] LABS: PCO2 Arterial 57.6 mmHg (35-45); PO2 Arterial 68.9 mmHg (80-100); pH Blood Arterial 7.36 (7.35-7.45)
--- NOTE | 2019-11-03 06:41 | NUR ---
PT REMAINS SEDATED THIS AM, PROPOFOL GTT TITRATED UP FROM 55 MCG/KG/MIN TO 60 MCG/KG/MIN SECONDARY TO INCREASED RESPIRATORY RATE AND BREATH STACKING, ATIVAN 2 MG IV ADMIN X 2 THIS SHIFT. LUNGS CONT WITH INS/EXP WHEEZES THROUGHOUT, VENT SETTINGS CONTINUE WITHOUT CHANGE THIS SHIFT, SATS MID 90S, RESP RATE HIGH TEENS TO LOW 20S, INCREASED RESP RATE IS NOTED WITH TURNS/REPOSITIONING. HRR, CONT SINUS RHYTHM, PRESSURE MAINTAINING. HYPOACTIVE BOWEL TONES CONT, OG REMAINS CLAMPED WITH MINIMAL RESIDUALS, NO GRIMACING WITH ABD PALPATION. TEMP PROBE CLEMENTE REMAINS IN PLACE DRAINING CLEAR YELLOW URINE TO GRAVITY, PT AFEBRILE THROUGHOUT SHIFT. FENTANYL CONTINUES AT 25 MCG/HR, NORMAL SALINE AT 75 ML/HR. PICC REMAINS TO RIGHT UPPER ARM.
--- NOTE | 2019-11-03 07:31 | NUR ---
ASSUMED CARE REPORT FROM LEONARD LOPEZ RN. PATIENT INTUBATED, SEDATED ON PROPOFOL AT 60 MCG/KG/HR AND FENTANYL AT 25 MCG/HR. IN DROPLET AND CONTACT ISOLATION FOR INFLUENZA. AFEBRILE.
--- NOTE | 2019-11-03 08:20 | NUR ---
PROPOFOL TITRATED TO 50 MCG/KG/MIN
--- NOTE | 2019-11-03 09:02 | NUR ---
MD VISIT DR. CONWAY IN. NO NEW ORDERS
--- NOTE | 2019-11-03 09:05 | NUR ---
TITRATED PROPOFOL BACK UP FOR AGITATION
--- NOTE | 2019-11-03 11:13 | NUR ---
MD VISIT DR. PAGE IN. VENT SETTINGS CHANGED TO PEEP 10, FIO2 50%
--- NOTE | 2019-11-03 11:14 | NUR ---
FAMILY UPDATED S.O AND MOTHER BOTH UPDATED BY PHONE. MOTHER IS IN [place] AND S.O. IS HOME WITH FLU
[2019-11-03 11:21] LABS: Vancomycin, Trough 13.5 ug/mL (5.0-10.0)
--- NOTE | 2019-11-03 16:05 | NUR ---
PATIENT BECAME AGITATED AFTER TURN TO LEFT SIDE BY ANA LILIA AND CULLEN, RNS. ATIVAN GIVEN, BIOX DROPPED FI02 TO 80% CONSULTED DR. PAGE, ORDERS NOT TO TURN TO LEFT SIDE. FENTANY GIVEN. FIO2 TITRATED DOWN TO 60% WHEEZES THROUGHOUT WHILE BT BEING GIVEN
--- NOTE | 2019-11-03 16:14 | NUR ---
MD VISIT DR. PAGE IN
--- NOTE | 2019-11-03 19:30 | NUR ---
ASSUMED CARE OF PT, HE REMAINS SEDATED AND INTUBATED, VENT SETTINGS NOTED PRESSURE SUPPORT, PI AT 15, RATE SET AT 16, PT CURRENT RATE NEAR 20, TIDAL VOLUMES NEAR 500, FIO2 60% AND PEEP OF 10, NO INCREASED WORK OF BREATHING IS NOTED AT THIS TIME, SATS ARE MID 90S, LUNGS CLEAR BILAT UPPER, BASES DIM WITH SCATTERED FAINT EXP WHEEZES AT THIS TIME, ETT 8.0, 26 AT THE TEETH, 27 AT LIP. HRR, SINUS CONTINUES ON MONITOR, RATE HIGH 70 LOW 80S AT THIS TIME, PRESSURE CONT MAINTAINING, PULSES FULL X 4 EXTREM, SKIN PWD, BRISK CAP REFILL, TRACE NON-PITTING EDEMA IS NOTED TO HANDS AND FEET. NORMOACTIVE BOWEL TONES ARE NOTED, ABD SOFT, OG REMAINS IN PLACE, CONT TUBE FEEDS ARE NOW NOTED, VITAL HIGH PROTEIN 1.0 AT 20 ML/HR, RESIDUAL OF LESS THAN 10 ML AT THIS TIME, 30 ML H2O FLUSH EVERY 4 HOURS. TEMP PROBE CLEMENTE REMAINS IN PLACE, DRAINING CLEAR GREEN TINTED URINE AT THIS TIME, PT REMAINS AFEBRILE. PICC DRESSING TO RIGHT UPPER ARM CONTINUES CDI, SITE WNL, INFUSING FENTANYL AT 25 MCG/HR, PROPOFOL AT 60 MCG/KG/MIN, AND NORMAL SALINE AT 75 ML/HR, 20 G SALINE LOCK REMAINS IN PLACE TO LEFT AC, FLUSHES WELL, SITE WNL, DRESSING WITH DRIED BLOOD VISIBLE OTHERWISE CDI.
[2019-11-04 04:24] LABS: Base Excess Venous 9.6 mmol/L; Bicarbonate Venous 31.5 mmol/L (24.0-30.0); PCO2 Venous 54.6 mmHg (38-42); PO2 Venous 58.2 mmHg (38-42); pH Blood Venous 7.41 (7.34-7.37)
[2019-11-04 04:27] LABS: BASOPHILS PERCENT AUTO 0 % (0-2); EOSINOPHILS PERCENT AUTO 0 % (0-6); Hematocrit 40.5 % (37.0-53.0); Hemoglobin 12.9 g/dL (13.5-17.5); IMMATURE GRAN ABSOLUTE AUTO 0.04 K/mm3 (0.00-0.10); IMMATURE GRAN PERCENT AUTO 1 % (0-1); LYMPHOCYTES ABSOLUTE AUTO 0.46 K/mm3 (0.84-5.20); LYMPHOCYTES PERCENT AUTO 6 % (21-46); MONOCYTES ABSOLUTE AUTO 0.56 K/mm3 (0.16-1.47); MONOCYTES PERCENT AUTO 7 % (4-13); Mean Corpuscular HGB Conc 31.9 g/dL (31.5-36.5); Mean Corpuscular Volume 94 fL (80-100); Mean Platelet Volume 9.9 fL (9.1-12.4); NEUTROPHILS ABSOLUTE AUTO 7.18 K/mm3 (1.96-9.15); NEUTROPHILS PERCENT AUTO 87 % (41-73); Platelet Count 235 K/mm3 (150-400); RDW Coefficient Variation 13.2 % (11.7-14.2); White Blood Cell Count 8.24 K/mm3 (4.00-11.30)
[2019-11-04 04:42] LABS: Anion Gap 2 mmol/L (6-16); Blood Urea Nitrogen 18 mg/dL (8-24); CO2, Blood 33 mmol/L (21-32); Calcium, Blood 7.8 mg/dL (8.5-10.1); Chloride, Blood 107 mmol/L (98-108); Creatinine, Blood 0.82 mg/dL (0.60-1.20); Glomerular Filtration Rate >60 (60-); Glucose, Blood 139 mg/dL (70-99); Magnesium, Blood 2.2 mg/dL (1.6-2.4); Phosphorus, Blood 2.4 mg/dL (2.5-4.9); Potassium, Blood 4.5 mmol/L (3.5-5.5); Sodium, Blood 142 mmol/L (136-145)
--- NOTE | 2019-11-04 06:22 | NUR ---
PT REMAINS AFEBRILE THROUGHOUT SHIFT. SATS CONSISTENTLY MID 90S WITH VENT SETTINGS UNCHANGED THROUGHOUT NOC, RESP RATE TEENS TO 20 WITH GOOD SEDATION, PT WAS NOTED TO SIT UP AWAY FROM BED FOLLOWING LAB DRAW, CONTINUED TO MAINTAIN OPEN EYES AND LOOKING AROUND ROOM WITH HARD SWALLOWING NOTED AROUND ETT, RESP RATE INCREASED TO MID TO HIGH 20S AT THAT TIME, FOLLOWING ATIVAN ADMINISTRATION, FENTANYL 50 MCG IV ADMINISTERED WITH GOOD RESULTS, PT WAS NOTED TO REPOSITION HEAD AND EXTREMITIES FOLLOWING FENTANYL DOSE HOWEVER SATS IMPROVED FROM 87% TO LOW TO MID 90S WITHIN 5 MINUTES OF ADMINISTRATION. LUNG SOUNDS CONTINUE IMPROVED THROUGHOUT SHIFT, WHEEZES SCATTERED AT TIMES, BASES DIMIN BUT LUNGS OTHERWISE HAVE BEEN CLEAR THROUGHOUT NOC. TUBE FEEDS INCREASED AT MIDNOC TO 35 ML/HR FROM 20 ML/HR PT HAS TOLERATED WELL, 0400 RESIDUAL 30 ML OTHERWISE RESIDUALS HAVE BEEN LESS THAN 20 ML, OF NOTE RESIDUAL AT 0400 APPEARED TO BE WATER FOLLOWING TUBE FEED FLUSH. URINE CONTINUES GREEN THROUGHOUT SHIFT, 1225 TOTAL URINE OUT FOR THE NOC.
--- NOTE | 2019-11-04 07:32 | NUR ---
ASSUMED CARE REPORT FROM LEONARD LOPEZ RN. PT CONTINUES INTUBATED A/C 16 PC PEEP 10 FIO2 60% OVERBREATHING THE VENT AT 20 BPM. SEDATED ON PROPOFOL 60 MCG/KG/MIN AND FENTANYL 25 MCG/HR. TF 35 ML/HR (GOAL 50 ML/HR) NS 75 ML/HR. CONTINUES IN CONTACT AND DROPLET ISOLATION FOR INFLUENZA.
--- NOTE | 2019-11-04 08:57 | NUR ---
MD VISIT DR. PAGE IN. ORDERS TO CHANGE VENT TO FIO2 50% AND PEEP 5. ALSO TO DECREASE PROPOFOL TO 40 MCG/KG/MIN AND FENTANYL TO 100 MCG/HR
--- NOTE | 2019-11-04 09:00 | NUR ---
CARE ASSUMED REPORT RECEIVED, CARE ASSUMED AT 0900 FROM JYOTI KEYS. PT INTUBATED, SEDATED. SEE SHIFT ASSESSMENT FOR VENT SETTINGS. PT AROUSES WITH STIMULI BUT NOT FOLLOWING COMMANDS AT THIS TIME. PROPOFOL TITRATED DOWN, SEE FLOWSHEET. TUBE FEED INCREASED TO 45 ML/HR FOR MINIMAL RESIDUALS. CLEMENTE SECURED AND DRAINING. BILAT WRIST RESTRAINTS FOR SAFETY.
--- NOTE | 2019-11-04 12:04 | NUR ---
DR. PAGE AT BEDSIDE DR. PAGE AT BEDSIDE FOR ASSESSMENT. PT CHANGED TO PRESSURE SUPPORT 0/5. RR 8/10, TV [phone], MINUTE VENTILATION 8-11. 02 SAT 90'S. PLAN FOR PRECEDEX, DECREASE PROPOFOL AND WORK TOWARD EXTUBATION IN THE NEXT FEW DAYS. ABX DISCONTINUED.
--- NOTE | 2019-11-04 17:00 | NUR ---
EXTUBATION CALLED INTO ROOM AT 1625 BY RN THAT NOTICED PT HAD SELF EXTUBATED. AT THE TIME PT'S RESTRAINTS FULLY SECURED. DR. PAGE IMMEDIATELY TO BEDSIDE. SEDATION STOPPED. PT SUCTIONED, PLACED ON NONREBREATHER, O2 SAT'S MAINTAINING. MODERATE SECRETIONS, DEEP SUCTION PER RT. SEE RESPIRATORY CARE NOTES. PT ALERT, AND FOLLOWING DIRECTIONS. PT INTIALLY ANGRY, YELLING AT STAFF, BUT WHEN REASSURED AND ORIENTED TO SITUATION PT QUICKLY CALMS DOWN. ATTEMPTED TO TITRATE PATIENT TO NASAL CANNULA BUT 02 SATURATIONS DROPPED TO LOW 80'S. PT PLACED ON AIRVO AND TOLERATING WITH 02 SATURATIONS IN 90'S. LUNGS COARSE THROUGHOUT. BP/HR STABLE. PLAN PER DR. PAGE IS TO KEEP PT ON AIRVO OVERNIGHT IF PT TOLERATES.
--- NOTE | 2019-11-04 19:01 | NUR ---
SUMMARY SINCE PREVIOUS NOTE, AIRVO SETTINGS UNCHANGED. 02 SAT'S MAINTAINING IN 90'S. PT HAS BEEN A BIT ANXIOUS WHEN STAFF IS AT BEDSIDE, BUT RESTFUL WHEN STIMULATION IS DECREASED. BP/HR CONTINUE TO BE STABLE. PT'S , JOZEF UPDATED AND AT BEDSIDE AT THIS TIME. PT TAKEN OUT OF RESTRAINTS ONCE STABALIZED AFTER EXTUBATTION. AGREEABLE TO LEAVE CORDS/LINES IN PLACE AND HAS BEEN COMPLIANT SINCE EXTUBATION.
--- NOTE | 2019-11-04 19:20 | NUR ---
REPORT TO JYOTI ROSALES TO ASSUME CARE
--- NOTE | 2019-11-04 20:20 | NUR ---
PT VISITING WITH FAMILY. A/O X4. FOLLOWING COMMANDS. PASSED BEDSIDE SWALLOW EVAL AND WAS ABLE TO TAKE TAMIFLU WITHOUT DIFFICULTY. ON AIRVO. INCREASED FIO2 TO 63% SPO2 WOULD DROP TO 86% ON 45% FIO2. SEE ASSESSMENT. NO SIGN OF DISTRESS.
--- NOTE | 2019-11-05 00:04 | NUR ---
PT RESTING IN BED. HAD A BOUT OF VOMITING. GAVE ZOFRAN AND PT SEEMS TO BE FINE NOW. PICC LINE QUIT FLUSHING. TOOK DRESSING DOWN AND CATHETER UN COILED A LITTLE AND IS NOW FLUSHING FINE. SEE PICC LINE DOCUMENTATION. BROTHER AT BEDSIDE.
[2019-11-05 04:00] LABS: Anion Gap 4 mmol/L (6-16); Blood Urea Nitrogen 16 mg/dL (8-24); Bun/Creatinine Ratio 21.9 (12.0-20.0); CO2, Blood 32 mmol/L (21-32); Calcium, Blood 8.2 mg/dL (8.5-10.1); Chloride, Blood 108 mmol/L (98-108); Creatinine, Blood 0.73 mg/dL (0.60-1.20); Glomerular Filtration Rate >60 (60-); Glucose, Blood 115 mg/dL (70-99); Phosphorus, Blood 2.8 mg/dL (2.5-4.9); Potassium, Blood 4.3 mmol/L (3.5-5.5); Sodium, Blood 144 mmol/L (136-145)
--- NOTE | 2019-11-05 06:06 | NUR ---
SUMMARY PT REMAINS ON AIRVO AT 61%. HAS BEEN ABLE TO COUGH AND CLEAR AIRWAY ALL NIGHT. TAKING SIPS OF WATER WITHOUT DIFFICULTY. HAVING APPROPRIATE CONVERSATIONS. WEAKNESS T/O AND PT HAS BEEN MOVING EXTREMITIES TO TRY TO STRENGTHEN THEM. PT HAD A BOUT OF VOMITING THAT WAS 350ML. GAVE ZOFRAN THEN PT SLEPT FOR THE REST OF THE NIGHT. AROUSES EASILY TO VOICE. PT STATES SOMETIMES HE SEES FLIES IN THE ROOM AND KNOWS THEY ARE NOT REALLY THERE. NO SIGN OF DISTRESS. CALL LIGHT IN REACH. BROTHER STAYED THE NIGHT WITH PT.
--- NOTE | 2019-11-05 08:17 | NUR ---
Receieved report from Negar MONTES. Patiet was sleeping at time of report and family in room sleeping as well. He awaoke about 0800 and was requesting something to eat. He is alert and oriented and able to communicate his needs. He is on Air Vo 60/40 and sats 93%. He denies any current pain,. He has occassional productive cough that he is able to clear. Hen has PICC line to NIKOLAY dressing intact and site WNL's and is infusing NS at 75ml/hr. He was able to tolerate oral meds this am withoput any difficulty. His extremities very weak and shaky and needs assistance to hold thing at times. Family at bedside.
--- NOTE | 2019-11-05 09:26 | NUR ---
PATIENT TOLERATED PUDDING WITH OUT COUGH OR SIGNS OF ASPIRATIONS AND DR PAGE IS OK WITH STARTING ON REGULAR DIET. FAMILY AT BEDSIDE. PATIENT DENIES ANY CURRENT NEEDS. HE REMAINS ON AIR-VO 60/40 AND SATS LOW 90%'S
--- NOTE | 2019-11-05 11:00 | NUR ---
RT has increased Air-Vo to 78/45 with sat 90%. Have asked family for reduced interaction and allow him to rest. HR 80's, 158/77 with MAP >65. He has been eat breakfast and no signs of aspiration or increased cough. He has been using extremities better. He has low grade fever of 99.3.
--- NOTE | 2019-11-05 13:30 | NUR ---
Patient has jarret sleeping and intermetently awakening to snack on lunch. While sleeping his sats have beeni 91-96% and resting well. Held all phone calls to let him sleep.
--- NOTE | 2019-11-05 15:30 | NUR ---
RT has been reducing Air-Vo and is at 65/45. He isn awake and has taken several phone calls and maintained sats. Continues NS at 75ml/hr. Slid up in bed and repostioned for comfort. VSS
--- NOTE | 2019-11-05 18:42 | NUR ---
Patient has been on Air-Vo 60/45 and sats low 90% and has denies an difficulty breathing. Had him up in recliner for an hour and he was a one person full assist. Changed bed linen and but him in his street shorts. He brushed teeth and washed hands and face with a little assistance from , whom just left home as she has not been feeling well either. He used urinal with minimal assist and had 800ml tea colored urine. He is currently back in bed and on NS at 75ml/hr. He started a little bit on dinner and was too tired to finish, resting currently
--- NOTE | 2019-11-05 21:39 | NUR ---
PT SITTING UP IN BED. A.O X4. STATES HE STILL FEELS WEAK. ABLE TO MOVE SELF IN BED. EDEMA IN HANDS HAS IMPROVED AND FINE MOTOR IMPROVING. DENIES PAIN, SOB, AND N/V. NO REQUESTS. CALL LIGHT AND URINAL IN REACH.
[2019-11-06 04:39] LABS: Anion Gap 5 mmol/L (6-16); Blood Urea Nitrogen 17 mg/dL (8-24); Bun/Creatinine Ratio 19.3 (12.0-20.0); CO2, Blood 29 mmol/L (21-32); Calcium, Blood 8.6 mg/dL (8.5-10.1); Chloride, Blood 109 mmol/L (98-108); Creatinine, Blood 0.88 mg/dL (0.60-1.20); Glomerular Filtration Rate >60 (60-); Glucose, Blood 146 mg/dL (70-99); Potassium, Blood 4.3 mmol/L (3.5-5.5); Sodium, Blood 143 mmol/L (136-145)
--- NOTE | 2019-11-06 06:27 | NUR ---
SUMMARY PT RESTING IN BED. REMAINS ON AIRVO. TITRATING FIO2 DOWN. PT HAD UNEVENTFUL NIGHT. NO SIGNS OF DISTRESS.
--- NOTE | 2019-11-06 07:24 | NUR ---
CARE ASSUMED REPORTR RECEIVED, CARE ASSUMED AT 0700 FROM JYOTI ROSALES. ON ROUNDS, PT RESTING QUIETLY. AROUSES EASILY TO VERBAL STIMULI. ALERT, ORIENTED. PT EXPRESSES FRUSTRATION STATING, "I AM JUST WANTING TO GET OUT OF HERE." PROVIDED WITH REASSURANCE AND EDUCATION AND PT AGREEABLE. DISCUSSED GETTING UP TO CHAIR FOR BREAKFAST AND PT AGREES. HE ALSO SAYS HE WOULD LIKE TO GO FOR A WALK LATER. PT ON AIRVO AND MAINTAINING O2 SAT'S IN 90'S. BP/HR STABLE. PT AFEBRILE. PT DENIES NEEDS AT THIS TIME, AGREEABLE TO USE CALL LIGHT.
--- NOTE | 2019-11-06 11:27 | NUR ---
PROVIDER VISIT DR. PAGE AT BEDSIDE FOR ASSESSMENT. PLAN TO DECREASE FIO2 ON OXYMIZER AND TRANSITION TO HIGH FLOW IF PATIENT TOLERATES. RECEIVED VERBAL ORDER TO D/C PICC LINE ONCE IV IS ESTABLISHED, DISCONTINUE MAINTENANCE FLUIDS AND TRANSFER PT TO PCU STATUS. DR. PAGE STATES SHE WILL PUT IN BOWEL CARE ORDERS PT HAS NOT HAD BOWEL MOVEMENT SINCE ADMISSION. BOWEL SOUNDS ARE ACTIVE AND PT DOES HAVE ADEQUATE APPETITE.
--- NOTE | 2019-11-06 18:56 | NUR ---
SUMMARY SINCE PREVIOUS NOTE, PT HAS HAD A QUIET AFTERNOON. HE HAS HAD A FEW VISITORS. ATTEMPTED CHAIR AT LUNCH TIME BUT PT BECAME DIZZY. ENCOURAGED PT TO EAT AND HYDRATE. PT'S APPETITE HAS BEEN SOMEWHAT POOR. VITALS STABLE. PT TITRATED OFF OF OXYMIZER TO HIGH FLOW NASAL CANNULA 8 LPM WITH ACTIVITY AND 6 LPM WHILE RESTING IN BED. THIS EVENING PT CHANGED TO MEDICAL STATUS NO TELEMETRY. PT UPDATED AND AGREEABLE. PT UP TO CHAIR THIS EVENING, SETUP ASSIST FOR SPONGE BATH.
--- NOTE | 2019-11-06 19:24 | NUR ---
REPORT TO JYOTI ROSALES TO ASSUME CARE
--- NOTE | 2019-11-06 20:00 | NUR ---
PT BACK TO BED FROM CHAIR INDEP. ON 8L HIGH FLOW NC. NO SOB. WEAKNESS IS IMPROVING. NO REQUESTS, NO SIGNS OF DISTRESS.
--- NOTE | 2019-11-07 06:22 | NUR ---
PT RESTING IN BED. STILL ON 8L HIGH FLOW NC. HAS CONTINUOUS OXIMETERY ON. PT DID WELL DUING THE NIGHT. UNEVENTFUL NIGHT.
--- NOTE | 2019-11-07 07:47 | NUR ---
CARE ASSUMED REPORT RECEIVED, CARE ASSUMED AT 0700 FROM JYOTI ROSALES. PT ASLEEP IN BED, AROUSES EASILY FOR ASSESSMENT. NOTED THAT PT'S O2 SATURATION WAS 80% AND WAS NOT ALARMING, PT'S OXYGEN WAS OFF. PT STATES HE CHANGED THE ALARM BECAUSE "IT KEPT GOING OFF." EDUCATED PT EXTENSIVELY AND PT APOLOGETIC AND VERBALIZES UNDERSTANDING. 02 PARAMETERS PLACED BACK TO ALARM AT 89%. OXYGEN PLACED BACK ON PATIENT. IT TOOK PT APPROXIMATELY 10 MINUTES TO RECOVER TO 90% ONCE OXYGEN BACK IN PLACE. PT EXPLAINS, "MY PLAN TODAY IS TO TRY AND GO HOME IF I CAN RENT AN OXYGEN MACHINE." REQUESTS TO TAKE A NAP UNTIL BREAKFAST, AND IS HOPEFUL FOR A SHOWER AFTERWARDS. WILL WORK WITH PATIENT THIS MORNING TO GET UP AND MOVING AND EVALUATE READINESS FOR WALK TO SHOWER. VITALS STABLE. SHE SHIFT ASSESSMENT. PT AGREES TO CALL FOR NEEDS AND PRIOR TO GETTING UP AND OUT OF BED.
--- NOTE | 2019-11-07 11:00 | NUR ---
PROVIDER COMMUNICATION PT EXPLAINS THAT HIM AND HIS SPOUSE, JOZEF AGREE THAT HE WILL BE LEAVING TODAY REGARDLESS OF OFFICIAL DISCHARGE. SPOKE WITH DR. CONWAY WHO STATES HE WOULD LIKE TO GET PATIENT SAFETY DISCHARGED. NEW ORDER FOR HOME 02 EVALUATION. PT UPDATED AND AGREEABLE.
--- NOTE | 2019-11-07 13:00 | NUR ---
DISCHARGE HOME 02 EVALUATION COMPLETE. NEW ORDER FOR HOME 02, 3 LPM AT REST AND WITH ACTIVITY. UPDATED DR. CONWAY. DISCHARGE ORDER RECEIVED. FAXED SIGNED OXYGEN ORDER TO [facility]. PT UPDATED AND AGREEABLE.
--- NOTE | 2019-11-07 13:51 | NUR ---
[facility] COMMUNICATION SPOKE WITH [facility] TO CONFIRM OXYGEN FOR PATIENT AND THEY EXPLAINED THEY ARE NOT ACCEPTING NEW PATIENTS TO BILL THROUGH INSURANCE. ASKED ABOUT PRIVATE PAY AND THEY AGREED. SAID THEY WOULD CALL BACK WITH [facility] FOR PATIENT. UPDATED PT AND SPOUSE AND THEY ARE AGREEABLE.
[2019-11-07] MEDS ORDERED: PRED20 PO (15:15)
--- NOTE | 2019-11-07 15:25 | NUR ---
UPDATE SINCE PREVIOUS NOTE, [facility] DECLINED TO PROVIDE OXYGEN TO PATIENT. [facility] AVAILABLE TO BRING OXYGEN FOR PATIENT. PT AND FAMILY UPDATED AND AGREEABLE. MEDICATIONS CALLED TO [facility], [facility] SAYS THEY SHOULD BE READY WITHIN 1 HOUR. FOLLOW UP APPOINTMENT MADE WITH AN ASSOCIATE AT PT'S PRIMARY CARE OFFICE HIS PCP IS NOT AVAILABLE UNTIL THE END OF THE MONTH.
--- NOTE | 2019-11-07 15:52 | NUR ---
DISCHARGE [facility] SET UP PATIENT WITH HOME OXYGEN. REVIEWED DISCHARGE PAPERWORK WITH PATIENT AND SIGNFICANT JOZEF DUONG. AGREEABLE TO WEAR OXYGEN PRESCRIBED, CREDIT ANALYSIS MANAGER [facility] AT [facility] ON THE WAY HOME, AND CALL FOR ANY CONCERNS. ALSO STATED THEY PLANNED TO BUY AN SPO2 MONITOR WHILE AT [facility]. ALL QUESTIONS ANSWERED. DISCHARGE SUMMARY SIGNATURE PAGE SIGNED AND PLACED ON PAPER CHART. PT DEMONSTRATED PUTTING ON OXYGEN AND TURNING IT ON/OFF. VITALS STABLE. IV DISCONTINUED. ALL PT BELONGINGS SENT WITH PATIENT. PT ESCORTED VIA WHEELCHAIR BY [employer] WITH SIGNFICANT OTHER AT SIDE.
== END 2019-11-07 15:52 | disposition home or self-care (01) | DRG 871 ==
LOC: ER 19:02 → ICUW 22:25 → PCU 22:25 → ICUW 23:17
PROVIDERS: Emergency Medicine; Internal Medicine Critical Care Medicine; Internal Medicine Pulmonary Disease; Physician Assistant; ADMIT Internal Medicine
PROC: 5A1945Z Respiratory Ventilation, 24-96 Consecutive Hours (ICD-10-PCS; principal; 2019-10-31)
PROC: 0BH17EZ Insertion of Endotracheal Airway into Trachea, Via Natural or Artificial Opening (ICD-10-PCS; 2019-10-31)
PROC: 02HV33Z Insertion of Infusion Device into Superior Vena Cava, Percutaneous Approach (ICD-10-PCS; 2019-11-01)
PROC: B548ZZA Ultrasonography of Superior Vena Cava, Guidance (ICD-10-PCS; 2019-11-01)
PROC: 3E0436Z Introduction of Nutritional Substance into Central Vein, Percutaneous Approach (ICD-10-PCS; 2019-11-03)
DX: A41.89 Other specified sepsis (principal); J96.01 Acute respiratory failure with hypoxia; R65.21 Severe sepsis with septic shock; N17.0 Acute kidney failure with tubular necrosis; J45.901 Unspecified asthma with (acute) exacerbation; J10.1 Influenza due to other identified influenza virus with other respiratory manifestations; J44.9 Chronic obstructive pulmonary disease, unspecified; Z87.891 Personal history of nicotine dependence; Z88.6 Allergy status to analgesic agent; Z79.51 Long term (current) use of inhaled steroids; Z78.1 Physical restraint status
CPT/HCPCS: 0099U; 31500; 31720; 36415; 36569; 36600; 51702; 71045; 80048; 80053; 80202; 81003; 82803; 82947; 83605; 83735; 84100; 85025; 85379; 85610; 85730; 87040; 87070; 87086; 87205; 87804; 90686; 93005; 93010; 94002; 94003; 94640; 94644; 94664; 94761; 96365-59; 96366-59; 96375-59; 98960; 99285-25; 99406; C1751; C9113; J1650; J2060; J2250; J2405; J2543; J2704; J2930; J3010; J3370; J3475; J7030; J7050; J7060; J7120; J7512

== ENCOUNTER 2020-07-10 13:07 | Emergency (ER) | payer OTHER ==
[~2020-07-10] VITALS: Ht 188 cm; Wt 104.3 kg
[~2020-07-10 13:07] MED LIST changes: +FLUTICASONE-SA1 EAC5 INH; +PRED20 PO
[2020-07-10] MEDS ORDERED: Roxicodone5 MG PO (14:45)
[2020-07-10] MEDS ORDERED: PRED10 PO (14:45)
== END 2020-07-10 14:56 | disposition home or self-care (01) ==
LOC: ER 13:07
DX: S29.9XXA Unspecified injury of thorax, initial encounter (principal); J45.901 Unspecified asthma with (acute) exacerbation; N17.9 Acute kidney failure, unspecified; Z87.891 Personal history of nicotine dependence; W19.XXXA Unspecified fall, initial encounter
CPT/HCPCS: 71101; 99283-25; J7512

== ENCOUNTER 2021-02-01 09:17 | Emergency (ER) | payer OTHER ==
[~2021-02-01] VITALS: Ht 188 cm; Wt 108.9 kg
[~2021-02-01 09:17] MED LIST changes: +Roxicodone5 MG PO
[2021-02-01] MEDS ORDERED: Incruse Ellipta 62.5 (09:23)
[2021-02-01] MEDS ORDERED: Ventolin/Prove6.7 GM (09:23)
[2021-02-01] MEDS ORDERED: Norco 5-325 Ta1 EACH PO (10:33)
== END 2021-02-01 11:00 | disposition home or self-care (01) ==
LOC: ER 09:17
DX: M25.461 Effusion, right knee (principal); Z88.6 Allergy status to analgesic agent; Z79.899 Other long term (current) drug therapy
CPT/HCPCS: 29505; 73564; 99283-25; A9270

== ENCOUNTER 2021-10-06 18:02 | Emergency (ER) | payer OTHER ==
[~2021-10-06] VITALS: Ht 188 cm; Wt 104.3 kg
[~2021-10-06 18:02] MED LIST changes: +Incruse Ellipta 62.5; +Norco 5-325 Ta1 EACH PO; +Ventolin/Prove6.7 GM
[2021-10-06] MEDS ORDERED: IPRAT-ALBUT 0.5-3 ML INH (18:48)
[2021-10-06] MEDS ORDERED: PRED20 PO (20:33)
[2021-10-06] MEDS ORDERED: Azithromycin500 MG PO (20:35)
== END 2021-10-06 20:45 | disposition home or self-care (01) ==
LOC: ER 18:02
DX: J44.1 Chronic obstructive pulmonary disease with (acute) exacerbation (principal); J45.901 Unspecified asthma with (acute) exacerbation; Z88.6 Allergy status to analgesic agent; Z87.891 Personal history of nicotine dependence
CPT/HCPCS: 71045; 94640; 94644; 96374; 99284-25; A9270; J2930

== ENCOUNTER 2021-10-18 05:53 | Emergency (ER) | payer OTHER ==
[~2021-10-18] VITALS: Ht 188 cm; Wt 104.3 kg
[~2021-10-18 05:53] MED LIST changes: +Azithromycin500 MG PO; +IPRAT-ALBUT 0.5-3 ML INH
[2021-10-18] MEDS ORDERED: PRED20 PO (09:09)
== END 2021-10-18 10:40 | disposition home or self-care (01) ==
LOC: ER 05:53
DX: J45.901 Unspecified asthma with (acute) exacerbation (principal)
CPT/HCPCS: 71045; 94640; 94644; 96365; 96366; 99285-25; J1100; J3475

== ENCOUNTER 2021-10-31 13:22 | Emergency (ER) | payer OTHER ==
[~2021-10-31] VITALS: Ht 188 cm; Wt 104.3 kg
[2021-10-31 13:57] LABS: BASOPHILS ABSOLUTE AUTO 0.09 K/mm3 (0.00-0.23); BASOPHILS PERCENT AUTO 1 % (0-2); EOSINOPHILS ABSOLUTE AUTO 0.69 K/mm3 (0.00-0.68); EOSINOPHILS PERCENT AUTO 10 % (0-6); Hematocrit 44.5 % (37.0-53.0); Hemoglobin 15.2 g/dL (13.5-17.5); IMMATURE GRAN ABSOLUTE AUTO 0.02 K/mm3 (0.00-0.10); IMMATURE GRAN PERCENT AUTO 0 % (0-1); LYMPHOCYTES ABSOLUTE AUTO 1.98 K/mm3 (0.84-5.20); LYMPHOCYTES PERCENT AUTO 28 % (21-46); MONOCYTES ABSOLUTE AUTO 0.56 K/mm3 (0.16-1.47); MONOCYTES PERCENT AUTO 8 % (4-13); Mean Corpuscular HGB 30.1 pg (26.0-34.0); Mean Corpuscular HGB Conc 34.2 g/dL (31.5-36.5); Mean Corpuscular Volume 88 fL (80-100); Mean Platelet Volume 9.5 fL (9.1-12.4); NEUTROPHILS ABSOLUTE AUTO 3.75 K/mm3 (1.96-9.15); NEUTROPHILS PERCENT AUTO 53 % (41-73); Platelet Count 332 K/mm3 (150-400); RDW Coefficient Variation 12.4 % (11.7-14.2); RDW Standard Deviation 40.3 fL (35.1-46.3); Red Blood Cell Count 5.05 M/mm3 (4.30-5.90); White Blood Cell Count 7.09 K/mm3 (4.00-11.30)
[2021-10-31 14:18] LABS: Alanine Aminotransfer (ALT/SGP 40 U/L (12-78); Albumin, Blood 3.7 g/dL (3.4-5.0); Alk Phos 56 U/L (50-136); Anion Gap 2 mmol/L (6-16); Aspartate Aminotrans (AST/SGOT 23 U/L (12-37); Bilirubin, Total 0.7 mg/dL (0.1-1.0); Blood Urea Nitrogen 17 mg/dL (8-24); Bun/Creatinine Ratio 16.7 (12.0-20.0); CO2, Blood 25 mmol/L (21-32); Calcium, Blood 8.8 mg/dL (8.5-10.1); Chloride, Blood 109 mmol/L (98-108); Creatinine, Blood 1.02 mg/dL (0.60-1.20); Globulin, Blood 3.6 g/dL (2.2-4.0); Glomerular Filtration Rate >60 (60-); Glucose, Blood 102 mg/dL (70-99); Potassium, Blood 4.1 mmol/L (3.5-5.5); Sodium, Blood 136 mmol/L (136-145); Total Protein, Blood 7.3 g/dL (6.4-8.2)
[2021-10-31] MEDS ORDERED: Prednisone20 MG PO (15:12)
== END 2021-10-31 15:15 | disposition home or self-care (01) ==
LOC: ER 13:22
PROVIDERS: Physician Assistant
DX: J45.901 Unspecified asthma with (acute) exacerbation (principal); Z88.6 Allergy status to analgesic agent; Z87.891 Personal history of nicotine dependence
CPT/HCPCS: 36415; 80053; 85025; 94644; 96374; 99284-25; J2930

== ENCOUNTER 2021-12-23 08:18 | Emergency (ER) | payer OTHER ==
[~2021-12-23] VITALS: Ht 188 cm; Wt 97.5 kg
[2021-12-23] MEDS ORDERED: Norco 5-325 Ta1 EACH PO (10:44)
[2021-12-23] MEDS ORDERED: Robaxin750 MG PO (10:44)
== END 2021-12-23 10:55 | disposition home or self-care (01) ==
LOC: ER 08:18
DX: M54.6 Pain in thoracic spine (principal); W19.XXXA Unspecified fall, initial encounter
CPT/HCPCS: 72070; 99283-25; A9270

== ENCOUNTER 2022-05-10 11:10 | Inpatient (IN) | payer OTHER ==
[~2022-05-10] VITALS: Ht 188 cm; Wt 101.6 kg
[~2022-05-10 11:10] MED LIST changes: +Robaxin750 MG PO
[2022-05-10] MEDS ORDERED: FLUTICASONE-SA1 EA10 INH (11:22)
[2022-05-10 11:39] LABS: BASOPHILS ABSOLUTE AUTO 0.11 K/mm3 (0.00-0.23); BASOPHILS PERCENT AUTO 1 % (0-2); EOSINOPHILS ABSOLUTE AUTO 0.41 K/mm3 (0.00-0.68); EOSINOPHILS PERCENT AUTO 3 % (0-6); Hematocrit 44.1 % (37.0-53.0); Hemoglobin 15.5 g/dL (13.5-17.5); IMMATURE GRAN ABSOLUTE AUTO 0.05 K/mm3 (0.00-0.10); IMMATURE GRAN PERCENT AUTO 0 % (0-1); LYMPHOCYTES ABSOLUTE AUTO 1.52 K/mm3 (0.84-5.20); LYMPHOCYTES PERCENT AUTO 9 % (21-46); MONOCYTES ABSOLUTE AUTO 1.53 K/mm3 (0.16-1.47); MONOCYTES PERCENT AUTO 9 % (4-13); Mean Corpuscular HGB 31.6 pg (26.0-34.0); Mean Corpuscular HGB Conc 35.1 g/dL (31.5-36.5); Mean Corpuscular Volume 90 fL (80-100); Mean Platelet Volume 9.3 fL (9.1-12.4); NEUTROPHILS PERCENT AUTO 78 % (41-73); Platelet Count 327 K/mm3 (150-400); RDW Coefficient Variation 12.7 % (11.7-14.2); Red Blood Cell Count 4.91 M/mm3 (4.30-5.90); White Blood Cell Count 16.72 K/mm3 (4.00-11.30)
[2022-05-10 11:58] LABS: Albumin, Blood 3.9 g/dL (3.4-5.0); Albumin/Globulin Ratio 1.1 (0.8-1.8); Bilirubin, Total 0.6 mg/dL (0.1-1.0); Bun/Creatinine Ratio 14.3 (12.0-20.0); Calcium, Blood 9.2 mg/dL (8.5-10.1); Creatinine, Blood 0.91 mg/dL (0.60-1.20); Globulin, Blood 3.4 g/dL (2.2-4.0); Potassium, Blood 3.9 mmol/L (3.5-5.5); Total Protein, Blood 7.3 g/dL (6.4-8.2)
[2022-05-10 13:31] LABS: PCO2 Arterial 40.4 mmHg (35-45); PO2 Arterial 57.4 mmHg (80-100); pH Blood Arterial 7.45 (7.35-7.45)
[2022-05-10 15:41] LABS: Influenza A, PCR NEGATIVE (NEGATIVE); Influenza B, PCR NEGATIVE (NEGATIVE); Resp Syncytial Virus, PCR NEGATIVE (NEGATIVE)
[2022-05-10 15:52] LABS: Bicarbonate Venous 27.1 mmol/L (24.0-30.0); PCO2 Venous 38.2 mmHg (38-42); pH Blood Venous 7.46 (7.34-7.37)
[2022-05-10 16:57] LABS: SARS-Cov-2 (COVID-19) PCR, MMC POSITIVE (NEGATIVE)
--- NOTE | 2022-05-10 19:18 | NUR ---
BEDSIDE REPORT RECEIVED. PT A/O X4. CURRENTLY ON 4L VIA [place]. TELE IN PLACE. CALL LT IN REACH. WILL PROVIDE CARE T/O SHIFT.
--- NOTE | 2022-05-10 21:29 | NUR ---
PT STATES HE'S BEEN UP TO THE BATHROOM WITH SOME SOB. WILL CALL FOR ASSISTANCE IF NEEDED. CALL LT IN REACH.
--- NOTE | 2022-05-10 23:12 | NUR ---
650MG TYLENOL GIVEN FOR HEADACHE. WILL REASSESS. CALL LT IN REACH.
--- NOTE | 2022-05-11 00:10 | NUR ---
PT STATES HIS HEADACHE IS A BIT BETTER. NO OTHER NEEDS. CALL LT IN REACH.
--- NOTE | 2022-05-11 02:00 | NUR ---
PT APPEARS TO BE RESTING AT THIS TIME. CALL LT IN REACH.
--- NOTE | 2022-05-11 04:24 | NUR ---
PT REQUESTS A BREATHING TREATMENT. NOTIFIED RESPIRATORY CARE.
--- NOTE | 2022-05-11 04:27 | NUR ---
SHIFT SUMMARY: PT CURRENTLY ON 4L VIA NC. STILL SOB WITH ACTIVITY. REQUESTED ONE PRN BREATHING TREATMENT AT 0430. MEDICATED WITH TYLENOL X 1 FOR HEADACHE. NO OTHER ACUTE CHANGES. WILL CONTINUE TO PROVIDE CARE UNTIL SHIFT REPORT. CALL LT IN REACH.
--- NOTE | 2022-05-11 04:41 | NUR ---
CURRENTLY RECEIVING A BREATHING TREATMENT PER RT. SATS ON 4L 95%. CALL LT IN REACH.
[2022-05-11 04:48] LABS: BASOPHILS ABSOLUTE AUTO 0.02 K/mm3 (0.00-0.23); BASOPHILS PERCENT AUTO 0 % (0-2); EOSINOPHILS ABSOLUTE AUTO 0.01 K/mm3 (0.00-0.68); EOSINOPHILS PERCENT AUTO 0 % (0-6); Hematocrit 45.5 % (37.0-53.0); Hemoglobin 15.4 g/dL (13.5-17.5); IMMATURE GRAN ABSOLUTE AUTO 0.05 K/mm3 (0.00-0.10); IMMATURE GRAN PERCENT AUTO 0 % (0-1); LYMPHOCYTES ABSOLUTE AUTO 0.61 K/mm3 (0.84-5.20); LYMPHOCYTES PERCENT AUTO 5 % (21-46); MONOCYTES ABSOLUTE AUTO 0.44 K/mm3 (0.16-1.47); MONOCYTES PERCENT AUTO 4 % (4-13); Mean Corpuscular HGB 30.7 pg (26.0-34.0); Mean Corpuscular HGB Conc 33.8 g/dL (31.5-36.5); Mean Corpuscular Volume 91 fL (80-100); NEUTROPHILS ABSOLUTE AUTO 10.88 K/mm3 (1.96-9.15); NEUTROPHILS PERCENT AUTO 91 % (41-73); Platelet Count 329 K/mm3 (150-400); RDW Coefficient Variation 12.7 % (11.7-14.2); RDW Standard Deviation 41.6 fL (35.1-46.3); Red Blood Cell Count 5.01 M/mm3 (4.30-5.90); White Blood Cell Count 12.01 K/mm3 (4.00-11.30)
[2022-05-11 05:08] LABS: Albumin, Blood 3.5 g/dL (3.4-5.0); Bilirubin, Total 0.3 mg/dL (0.1-1.0); Bun/Creatinine Ratio 22.2 (12.0-20.0); Creatinine, Blood 0.81 mg/dL (0.60-1.20); Globulin, Blood 3.5 g/dL (2.2-4.0); Potassium, Blood 4.3 mmol/L (3.5-5.5)
[2022-05-11 07:26] LABS: Base Excess Venous 1.6 mmol/L; Bicarbonate Venous 25.8 mmol/L (24.0-30.0); PCO2 Venous 39.5 mmHg (38-42); pH Blood Venous 7.43 (7.34-7.37)
--- NOTE | 2022-05-11 11:15 | NUR ---
pt laying in bed awake watching tv, a/ox4, pleasant and cooperative with care, follows commands well, denies pain, states he's breathing ok, lungs are clear in the upper kelly, course dim in bases, on 4 liters o2 via n/c, he is home o2 dep on 4 liters at hs, hrr, tele in place running sr per monitor, see strip, no edema noted, ppp+2, cap refill <3sec v.s. stable, afebrile, piv site is clear and patent, btx4, abd flat soft nontender, voids without diff, skin c/w/d, maew, rossy, call light in reach.
--- NOTE | 2022-05-11 11:17 | NUR ---
weaned off o2, sats are 93% on r/a, he reports he feels ok. call light in reach.
--- NOTE | 2022-05-11 13:15 | NUR ---
Pt has been discharged to home, went over instructions with him, he verbalized understanding, his only new medication is prednisone, he is familiar with it. iv removed intact, left via ambulation with health professor in attendence.
[2022-05-11] MEDS ORDERED: PRED20 PO (13:26)
== END 2022-05-11 13:46 | disposition home or self-care (01) | DRG 177 ==
LOC: ER 11:10 → MEDS 16:38
PROVIDERS: Family Medicine; Physician Assistant; Student in an Organized Health Care Education/Training Program; ADMIT Hospitalist
PROC: 3E0333Z Introduction of Anti-inflammatory into Peripheral Vein, Percutaneous Approach (ICD-10-PCS; principal; 2022-05-10)
PROC: 8E0ZXY6 Isolation (ICD-10-PCS; 2022-05-10)
DX: U07.1 COVID-19 (principal); J96.01 Acute respiratory failure with hypoxia; J44.1 Chronic obstructive pulmonary disease with (acute) exacerbation; R07.9 Chest pain, unspecified; D72.829 Elevated white blood cell count, unspecified; R73.9 Hyperglycemia, unspecified; J33.9 Nasal polyp, unspecified; F17.210 Nicotine dependence, cigarettes, uncomplicated; Z88.8 Allergy status to other drugs, medicaments and biological substances; Z87.448 Personal history of other diseases of urinary system; Z98.890 Other specified postprocedural states; Z79.51 Long term (current) use of inhaled steroids; Z79.52 Long term (current) use of systemic steroids; Z79.899 Other long term (current) drug therapy
CPT/HCPCS: 0241U; 36415; 36600; 71046; 80053; 82803; 83690; 84484; 85025; 93005; 93010; 94640; 94644; 94645; 94664; 94760; 94762; 96374; 99285-25; A9270; J1100; J1650; J2405; J2930; J7512

== ENCOUNTER 2022-10-09 08:54 | Emergency (ER) | payer OTHER ==
[~2022-10-09] VITALS: Ht 188 cm; Wt 104.3 kg
[~2022-10-09 08:54] MED LIST changes: +FLUTICASONE-SA1 EA10 INH
[2022-10-09 10:29] LABS: BASOPHILS PERCENT AUTO 1 % (0-2); EOSINOPHILS ABSOLUTE AUTO 0.98 K/mm3 (0.00-0.68); EOSINOPHILS PERCENT AUTO 11 % (0-6); Hematocrit 47.4 % (37.0-53.0); Hemoglobin 16.4 g/dL (13.5-17.5); IMMATURE GRAN ABSOLUTE AUTO 0.02 K/mm3 (0.00-0.10); IMMATURE GRAN PERCENT AUTO 0 % (0-1); LYMPHOCYTES ABSOLUTE AUTO 1.99 K/mm3 (0.84-5.20); LYMPHOCYTES PERCENT AUTO 23 % (21-46); MONOCYTES ABSOLUTE AUTO 0.67 K/mm3 (0.16-1.47); MONOCYTES PERCENT AUTO 8 % (4-13); Mean Corpuscular HGB 31.1 pg (26.0-34.0); Mean Corpuscular HGB Conc 34.6 g/dL (31.5-36.5); Mean Corpuscular Volume 90 fL (80-100); Mean Platelet Volume 9.6 fL (9.1-12.4); NEUTROPHILS PERCENT AUTO 58 % (41-73); Platelet Count 388 K/mm3 (150-400); RDW Standard Deviation 39.2 fL (35.1-46.3); Red Blood Cell Count 5.28 M/mm3 (4.30-5.90); White Blood Cell Count 8.86 K/mm3 (4.00-11.30)
[2022-10-09 10:56] LABS: Albumin, Blood 3.9 g/dL (3.4-5.0); Albumin/Globulin Ratio 1.1 (0.8-1.8); Bilirubin, Total 0.4 mg/dL (0.1-1.0); Bun/Creatinine Ratio 16.2 (12.0-20.0); Calcium, Blood 8.8 mg/dL (8.5-10.1); Creatinine, Blood 1.05 mg/dL (0.60-1.20); Globulin, Blood 3.7 g/dL (2.2-4.0); Potassium, Blood 4.4 mmol/L (3.5-5.5); Total Protein, Blood 7.6 g/dL (6.4-8.2)
[2022-10-09 12:35] LABS: Influenza A, PCR NEGATIVE (NEGATIVE); Influenza B, PCR NEGATIVE (NEGATIVE); Resp Syncytial Virus, PCR NEGATIVE (NEGATIVE); SARS-Cov-2 (COVID-19) PCR, MMC NEGATIVE (NEGATIVE)
[2022-10-09 13:01] LABS: U Amphetamine Screen Not Detected; U Barbituate Screen Not Detected; U Benzodiazapine Screen Not Detected; U Buprenorphine Screen Not Detected; U Cannabinoids Screen Not Detected; U Cocaine Screen Not Detected; U Methadone Screen Not Detected; U Methamphetamine Screen Not Detected; U Opiates Screen Not Detected; U Oxycodone Screen Not Detected; U Phencyclidine Screen Not Detected; U Propoxyphene Screen Not Detected
[2022-10-09 13:05] LABS: Source, Urine Clean Catch
[2022-10-09 13:19] LABS: Appearance, Urine Clear (Clear); Bilirubin, Urine Neg (Neg); Blood, Urine Neg (Neg); Color, Urine Yellow (P-Yellow); Glucose Qualitative, Urine Neg (Neg); Ketones, Urine Neg (Neg); Leukocyte Esterase, Urine Neg (Neg); Nitrite, Urine Neg (Neg); Protein, Urine 1+ (Neg); Specific Gravity, Urine 1.025 (1.003-1.022); Urobilinogen, Urine NORM (Normal)
== END 2022-10-09 15:22 | disposition home or self-care (01) ==
LOC: ER 08:54
PROVIDERS: Emergency Medicine; Student in an Organized Health Care Education/Training Program
DX: R56.9 Unspecified convulsions (principal); J44.9 Chronic obstructive pulmonary disease, unspecified; F17.290 Nicotine dependence, other tobacco product, uncomplicated; Z88.8 Allergy status to other drugs, medicaments and biological substances; Z79.899 Other long term (current) drug therapy; Z79.52 Long term (current) use of systemic steroids; Z20.822 Contact with and (suspected) exposure to COVID-19
CPT/HCPCS: 0241U; 36415; 70450; 80053; 83735; 85025; 94640; 94664

== ENCOUNTER 2023-04-11 12:43 | Emergency (ER) | payer OTHER ==
[~2023-04-11] VITALS: Ht 172.7 cm; Wt 99.8 kg
[~2023-04-11 12:43] MED LIST changes: +PRED1 PO
[2023-04-11 13:16] LABS: BASOPHILS ABSOLUTE AUTO 0.12 K/mm3 (0.00-0.23); BASOPHILS PERCENT AUTO 1 % (0-2); EOSINOPHILS ABSOLUTE AUTO 1.12 K/mm3 (0.00-0.68); EOSINOPHILS PERCENT AUTO 11 % (0-6); Hematocrit 49.6 % (37.0-53.0); Hemoglobin 16.6 g/dL (13.5-17.5); IMMATURE GRAN ABSOLUTE AUTO 0.03 K/mm3 (0.00-0.10); IMMATURE GRAN PERCENT AUTO 0 % (0-1); LYMPHOCYTES ABSOLUTE AUTO 1.87 K/mm3 (0.84-5.20); LYMPHOCYTES PERCENT AUTO 18 % (21-46); MONOCYTES ABSOLUTE AUTO 0.91 K/mm3 (0.16-1.47); MONOCYTES PERCENT AUTO 9 % (4-13); Mean Corpuscular HGB 31.3 pg (26.0-34.0); Mean Corpuscular HGB Conc 33.5 g/dL (31.5-36.5); Mean Corpuscular Volume 93 fL (80-100); Mean Platelet Volume 9.6 fL (9.1-12.4); NEUTROPHILS ABSOLUTE AUTO 6.52 K/mm3 (1.96-9.15); NEUTROPHILS PERCENT AUTO 62 % (41-73); Platelet Count 392 K/mm3 (150-400); RDW Coefficient Variation 13.3 % (11.7-14.2); RDW Standard Deviation 45.9 fL (35.1-46.3); Red Blood Cell Count 5.31 M/mm3 (4.30-5.90); White Blood Cell Count 10.57 K/mm3 (4.00-11.30)
[2023-04-11 13:22] LABS: Bilirubin, Total 0.6 mg/dL (0.1-1.0); Creatinine, Blood 1.08 mg/dL (0.60-1.20); Potassium, Blood 4.6 mmol/L (3.5-5.5)
[2023-04-11 14:05] LABS: Influenza A, PCR NEGATIVE (NEGATIVE); Influenza B, PCR NEGATIVE (NEGATIVE); Resp Syncytial Virus, PCR NEGATIVE (NEGATIVE); SARS-Cov-2 (COVID-19) PCR, MMC NEGATIVE (NEGATIVE)
[2023-04-11] MEDS ORDERED: ALBU90OI INH (14:26)
[2023-04-11] MEDS ORDERED: PRED20 PO (14:26)
[2023-04-11] MEDS ORDERED: AZIT250 PO (14:27)
[2023-04-11 14:30] VITALS: BP 132/81
== END 2023-04-11 14:45 | disposition home or self-care (01) ==
LOC: ER 12:43
PROVIDERS: Physician Assistant
DX: J45.901 Unspecified asthma with (acute) exacerbation (principal); J18.9 Pneumonia, unspecified organism; Z88.6 Allergy status to analgesic agent; Z79.899 Other long term (current) drug therapy; Z79.52 Long term (current) use of systemic steroids; F17.290 Nicotine dependence, other tobacco product, uncomplicated
CPT/HCPCS: 0241U; 71046; 80053; 85025; 93005; 93010; 94644; 94664; 96374; 99285-25; J2930

== ENCOUNTER 2023-05-02 10:12 | Observation (INO) | payer OTHER ==
[~2023-05-02] VITALS: Ht 188 cm; Wt 111.7 kg
[~2023-05-02 10:12] MED LIST changes: +AZIT250 PO
[2023-05-02] MEDS ORDERED: Mirtazapine45 M1 PO (10:34)
[2023-05-02] MEDS ORDERED: OMEP20ER PO (15:47)
[2023-05-02] MEDS ORDERED: MONT10T PO (15:47)
[2023-05-02] MEDS ORDERED: ALBU2.5V5 INH (15:48)
[2023-05-02] MEDS ORDERED: ALBU90OI INH (15:48)
[2023-05-02] MEDS ORDERED: COMBIVENT RESPIM4 G1 INH (15:49)
[2023-05-02 16:06] VITALS: BP 154/91
--- NOTE | 2023-05-02 17:02 | NUR ---
ER ADMIT Patient alert & oriented x4, admitted for asthma exacerbation. Plan is to monitor patient overngiht, and administer solumedrol & respiratory treatments as needed. Patient educated on ignition sources and risk of injury while oxygen is in use. Patient verbalizes understanding, and denies smoking. Vitals stable, will continue plan of care.
[2023-05-02 19:26] VITALS: BP 142/99
[2023-05-03 04:57] VITALS: BP 152/92
--- NOTE | 2023-05-03 04:58 | NUR ---
SHIFT SUMMARY 38 YR M ADMITTED ON 05/02/23 FOR ASTHMA EXACERBATION. FULL CODE. NO ACUTE CHANGES THIS SHIFT. PT HAS BEEN RECEIVING BREATHING TX'S FROM RT. HE IS INDEPENDANT IN THE ROOM AND HAS SLEPT FOR MOST OF THIS SHIFT. HE IS PLEASANT AND COOPERATIVE WITH CARE. PT HAS BEEN EDUCATED ON IGNITION SOURCES AND FIRE DANGER WHEN OXYGEN IS IN USE.
[2023-05-03 05:17] LABS: BASOPHILS ABSOLUTE AUTO 0.02 K/mm3 (0.00-0.23); BASOPHILS PERCENT AUTO 0 % (0-2); EOSINOPHILS PERCENT AUTO 0 % (0-6); Hematocrit 45.5 % (37.0-53.0); Hemoglobin 15.4 g/dL (13.5-17.5); IMMATURE GRAN ABSOLUTE AUTO 0.04 K/mm3 (0.00-0.10); IMMATURE GRAN PERCENT AUTO 0 % (0-1); LYMPHOCYTES ABSOLUTE AUTO 0.58 K/mm3 (0.84-5.20); LYMPHOCYTES PERCENT AUTO 4 % (21-46); MONOCYTES PERCENT AUTO 2 % (4-13); Mean Corpuscular HGB 31.2 pg (26.0-34.0); Mean Corpuscular HGB Conc 33.8 g/dL (31.5-36.5); Mean Corpuscular Volume 92 fL (80-100); Mean Platelet Volume 10.1 fL (9.1-12.4); NEUTROPHILS ABSOLUTE AUTO 12.23 K/mm3 (1.96-9.15); NEUTROPHILS PERCENT AUTO 93 % (41-73); Platelet Count 358 K/mm3 (150-400); RDW Coefficient Variation 12.7 % (11.7-14.2); RDW Standard Deviation 43.3 fL (35.1-46.3); Red Blood Cell Count 4.94 M/mm3 (4.30-5.90); White Blood Cell Count 13.17 K/mm3 (4.00-11.30)
[2023-05-03 06:25] LABS: Albumin, Blood 3.6 g/dL (3.4-5.0); Bilirubin, Total 0.3 mg/dL (0.1-1.0); Bun/Creatinine Ratio 16.7 (12.0-20.0); Calcium, Blood 9.1 mg/dL (8.5-10.1); Creatinine, Blood 1.08 mg/dL (0.60-1.20); Globulin, Blood 3.5 g/dL (2.2-4.0); Potassium, Blood 4.6 mmol/L (3.5-5.5); Total Protein, Blood 7.1 g/dL (6.4-8.2)
[2023-05-03 08:07] VITALS: BP 150/87
[2023-05-03] MEDS ORDERED: PRED20 PO (13:24)
--- NOTE | 2023-05-03 13:48 | NUR ---
DISCHARGE PT LEFT AT 1330, REFUSED TO BE ESCORTED OUT WITH WHEELCHAIR. DENIES SHORTNESS OF BREATH. ALL BELONGINGS WITH PATIENT. HE PLANS TO FOLLOW UP WITH PCP. IV REMOVED WNL. PT DENIES FURTHER QUESTIONS AT THIS TIME. ALL INSTRUCTIONS GONE OVER WITH PATIENT.
== END 2023-05-03 13:38 | disposition home or self-care (01) ==
LOC: ER 10:12 → MEDS 10:13
PROVIDERS: ADMIT Internal Medicine
DX: J45.901 Unspecified asthma with (acute) exacerbation (principal); F41.9 Anxiety disorder, unspecified; F32.A Depression, unspecified; D72.829 Elevated white blood cell count, unspecified; T38.0X5A Adverse effect of glucocorticoids and synthetic analogues, initial encounter; J96.01 Acute respiratory failure with hypoxia
CPT/HCPCS: 36415; 71045; 80053; 85025; 94640; 94644; 94645; 94664; 94760; 96361; 96372; 96374; 96375; 96376; 99285-25; A9270; G0378; J1650; J2405; J2930; J7030

== ENCOUNTER 2023-08-30 14:49 | Inpatient (IN) | payer OTHER ==
[~2023-08-30] VITALS: Ht 188 cm; Wt 108.9 kg
[~2023-08-30 14:49] MED LIST changes: +AMOCLA875 PO; +APHEN325 M1 PO; +ATROVENT HFA12.9 GM INH; +COMBIVENT RESPIM4 G1 INH; +Deltasone 10 mg10 MG; +MIRALAX17 GM PO; +MIRTAZAPINE7.5 M1 PO; +Mirtazapine45 M1 PO; +OMEP20ER PO; +Prednisone10 MG PO; +TRAM50 PO; +VISBIOME 112.51 EACH PO
[2023-08-30 15:31] LABS: BASOPHILS ABSOLUTE AUTO 0.09 K/mm3 (0.00-0.23); BASOPHILS PERCENT AUTO 1 % (0-2); EOSINOPHILS ABSOLUTE AUTO 0.51 K/mm3 (0.00-0.68); EOSINOPHILS PERCENT AUTO 5 % (0-6); Hematocrit 46.8 % (37.0-53.0); IMMATURE GRAN ABSOLUTE AUTO 0.03 K/mm3 (0.00-0.10); IMMATURE GRAN PERCENT AUTO 0 % (0-1); LYMPHOCYTES ABSOLUTE AUTO 1.63 K/mm3 (0.84-5.20); LYMPHOCYTES PERCENT AUTO 16 % (21-46); MONOCYTES ABSOLUTE AUTO 1.08 K/mm3 (0.16-1.47); MONOCYTES PERCENT AUTO 10 % (4-13); Mean Corpuscular HGB 29.9 pg (26.0-34.0); Mean Corpuscular HGB Conc 34.2 g/dL (31.5-36.5); Mean Corpuscular Volume 88 fL (80-100); NEUTROPHILS ABSOLUTE AUTO 7.01 K/mm3 (1.96-9.15); NEUTROPHILS PERCENT AUTO 68 % (41-73); Platelet Count 399 K/mm3 (150-400); RDW Coefficient Variation 12.7 % (11.7-14.2); RDW Standard Deviation 40.6 fL (35.1-46.3); Red Blood Cell Count 5.35 M/mm3 (4.30-5.90); White Blood Cell Count 10.35 K/mm3 (4.00-11.30)
[2023-08-30 15:54] LABS: Albumin, Blood 4.1 g/dL (3.4-5.0); Albumin/Globulin Ratio 1.1 (0.8-1.8); Bilirubin, Total 0.3 mg/dL (0.1-1.0); Calcium, Blood 9.3 mg/dL (8.5-10.1); Creatinine, Blood 1.17 mg/dL (0.60-1.20); Globulin, Blood 3.7 g/dL (2.2-4.0); Potassium, Blood 3.7 mmol/L (3.5-5.5); Total Protein, Blood 7.8 g/dL (6.4-8.2)
[2023-08-30 17:28] LABS: Influenza A, PCR NEGATIVE (NEGATIVE); Influenza B, PCR NEGATIVE (NEGATIVE); Resp Syncytial Virus, PCR NEGATIVE (NEGATIVE); SARS-Cov-2 (COVID-19) PCR, MMC NEGATIVE (NEGATIVE)
[2023-08-30 19:56] VITALS: BP 119/74
--- NOTE | 2023-08-31 01:37 | NUR ---
PT ARRVED A/O ON 5L NC LUNGS SOUNDS CORSE, WHEEZING NO S/S SOB PT CALM AND COOPERATIVE. ADMISSION DONE , RT AT BEDSIDE GIVING BREATHING TREATMENT. PT IS APPROPRIATE AND WILL MAKE NEEDS KNOWN. SO FAR UNEVENTFUL EVENING.
[2023-08-31 04:44] VITALS: BP 139/72
[2023-08-31 05:26] LABS: Bun/Creatinine Ratio 15.8 (12.0-20.0); Calcium, Blood 8.7 mg/dL (8.5-10.1); Creatinine, Blood 1.01 mg/dL (0.60-1.20); Potassium, Blood 4.5 mmol/L (3.5-5.5)
--- NOTE | 2023-08-31 06:37 | NUR ---
NO CHANGE IN PT CONDITION CONT TO HAVE BREATHING TREATMENTS AND STEROIDS. SPOKE WITH PT ABOUT POSSIBLE SLEEP APNEA, PT AWARE AND HAS A SCHEDULED SLEEP STUDY NEXT WEEK.
[2023-08-31 07:37] VITALS: BP 139/74
[2023-08-31 16:09] VITALS: BP 137/75
[2023-08-31] MEDS ORDERED: AZIT250 PO (16:15)
[2023-08-31] MEDS ORDERED: PRED20 PO (16:16)
== END 2023-08-31 16:43 | disposition home or self-care (01) | DRG 193 ==
LOC: ER 14:49 → MEDS 17:39
PROVIDERS: Physician Assistant; Student in an Organized Health Care Education/Training Program; ADMIT Internal Medicine
DX: J18.9 Pneumonia, unspecified organism (principal); J96.01 Acute respiratory failure with hypoxia; J45.901 Unspecified asthma with (acute) exacerbation; J44.1 Chronic obstructive pulmonary disease with (acute) exacerbation; J44.0 Chronic obstructive pulmonary disease with (acute) lower respiratory infection; J98.11 Atelectasis; K21.9 Gastro-esophageal reflux disease without esophagitis; F41.9 Anxiety disorder, unspecified; Z11.52 Encounter for screening for COVID-19; Z88.8 Allergy status to other drugs, medicaments and biological substances; Z79.899 Other long term (current) drug therapy; Z79.51 Long term (current) use of inhaled steroids; Z79.2 Long term (current) use of antibiotics; Z79.891 Long term (current) use of opiate analgesic; Z98.890 Other specified postprocedural states; Z87.891 Personal history of nicotine dependence
CPT/HCPCS: 0241U; 36415; 71046; 80048; 80053; 84145; 85025; 93005; 93010; 94640; 94644; 94664; 94760; 94761; 96361; 96374; 96375; 99285-25; A9270; J0456; J1200; J1650; J2765; J2930; J7030; J7050; J7512

== ENCOUNTER 2025-05-16 18:18 | Emergency (ER) | payer OTHER ==
[~2025-05-16] VITALS: Ht 188 cm; Wt 90.7 kg
[~2025-05-16 18:18] MED LIST changes: +FLUTICASONE PRO16 GM; +Incruse Ellipta 62.5 INH; +VITAMIN D350 MC3 PO; +Ventolin/Prove6.7 GM INH
[2025-05-16] MEDS ORDERED: NS 1,000 ML IV SCH (19:20)
[2025-05-16 19:29] LABS: BASOPHILS ABSOLUTE AUTO 0.07 K/mm3 (0.00-0.23); BASOPHILS PERCENT AUTO 1 % (0-2); EOSINOPHILS ABSOLUTE AUTO 0.51 K/mm3 (0.00-0.68); EOSINOPHILS PERCENT AUTO 6 % (0-6); Hematocrit 43.0 % (37.0-53.0); Hemoglobin 14.7 g/dL (13.5-17.5); IMMATURE GRAN ABSOLUTE AUTO 0.05 K/mm3 (0.00-0.10); IMMATURE GRAN PERCENT AUTO 1 % (0-1); LYMPHOCYTES ABSOLUTE AUTO 1.21 K/mm3 (0.84-5.20); LYMPHOCYTES PERCENT AUTO 14 % (21-46); MONOCYTES ABSOLUTE AUTO 0.50 K/mm3 (0.16-1.47); MONOCYTES PERCENT AUTO 6 % (4-13); Mean Corpuscular HGB Conc 34.2 g/dL (31.5-36.5); Mean Corpuscular Volume 86 fL (80-100); NEUTROPHILS ABSOLUTE AUTO 6.61 K/mm3 (1.96-9.15); NEUTROPHILS PERCENT AUTO 74 % (41-73); NRBC ABSOLUTE 0.02 K/mm3 (0.00-0.02); NRBC Auto 0.2 /100 WBC (0.0-0.2); RDW Coefficient Variation 13.2 % (11.7-14.2); RDW Standard Deviation 40.9 fL (35.1-46.3)
[2025-05-16 19:41] LABS: Alanine Aminotransfer (ALT/SGP 36.0 U/L (12-78); Albumin, Blood 3.5 g/dL (3.4-5.0); Albumin/Globulin Ratio 1.2 (0.8-1.8); Anion Gap 9.0 mmol/L (3-11); Aspartate Aminotrans (AST/SGOT 20.0 U/L (12-37); Bilirubin, Total 0.5 mg/dL (0.1-1.0); Blood Urea Nitrogen 13.0 mg/dL (8-24); CO2, Blood 24.0 mmol/L (21-32); Calcium, Blood 8.1 mg/dL (8.5-10.1); Chloride, Blood 107.0 mmol/L (98-108); Creatinine, Blood 0.96 mg/dL (0.60-1.20); Globulin, Blood 3.0 g/dL (2.2-4.0); Glucose, Blood 103.0 mg/dL (70-99); Magnesium, Blood 2.0 mg/dL (1.6-2.4); Potassium, Blood 4.1 mmol/L (3.5-5.5); Sodium, Blood 136.0 mmol/L (136-145); Total Protein, Blood 6.5 g/dL (6.4-8.2)
[2025-05-16 20:30] VITALS: BP 125/66
== END 2025-05-16 20:46 | disposition home or self-care (01) ==
LOC: ER 18:18
PROVIDERS: Emergency Medicine
DX: R55 Syncope and collapse (principal); K21.9 Gastro-esophageal reflux disease without esophagitis; J44.89 Other specified chronic obstructive pulmonary disease; F17.290 Nicotine dependence, other tobacco product, uncomplicated; Z79.51 Long term (current) use of inhaled steroids; Z79.899 Other long term (current) drug therapy; Z79.52 Long term (current) use of systemic steroids; Z88.6 Allergy status to analgesic agent
CPT/HCPCS: 71046; 80053; 83735; 84484; 85025; 93005; 93010; 99285-25; J7030

== ENCOUNTER 2025-10-20 09:09 | Emergency (ER) | payer OTHER ==
[~2025-10-20] VITALS: Ht 188 cm; Wt 111.1 kg
[2025-10-20] MEDS ORDERED: Methyl Salicylate/Menth/Camph 57 GM TUBE TOP ONE (09:55)
[2025-10-20] MEDS ORDERED: Ipratropium/Albuterol SulF 2.5-0.5MG/3 ML Amp INH ONE (09:55)
[2025-10-20] MEDS ORDERED: ALBU90OI INH (09:58)
[2025-10-20 11:49] VITALS: BP 119/82
== END 2025-10-20 11:50 | disposition home or self-care (01) ==
LOC: ER 09:09
DX: S29.012A Strain of muscle and tendon of back wall of thorax, initial encounter (principal); K21.9 Gastro-esophageal reflux disease without esophagitis; J44.9 Chronic obstructive pulmonary disease, unspecified; F17.290 Nicotine dependence, other tobacco product, uncomplicated; Z88.8 Allergy status to other drugs, medicaments and biological substances; Z79.899 Other long term (current) drug therapy; Z79.51 Long term (current) use of inhaled steroids; X58.XXXA Exposure to other specified factors, initial encounter
CPT/HCPCS: 72070; 99283-25; A9270